=== PATIENT | female | born 1980 | race Caucasian/White ===

== ENCOUNTER 2018-01-08 16:43 | Emergency (ER) | payer MEDICAID, SELFPAY ==
[2018-01-08 16:52] VITALS: BP 129/84; PULSE 92; RESP 20; TEMP 37.1; O2SAT 99; BMI 21.2
--- NOTE | 2018-01-08 17:21 | HMH.EDUTC ---
[facility] [place] Disposition Clinical Impression: Tobacco abuse Bronchitis, acute Qualifiers: Bronchitis organism: unspecified organism Qualified Code(s): J20.9 - Acute bronchitis, unspecified Disposition: Home, Self-Care Condition on Discharge: Good Instructions: DI for Acute Bronchitis, How to Quit Tobacco Products Additional Instructions: * STOP SMOKING!!!! * start antibiotic today. Be sure to complete entire prescription even if feeling better. * Monitor Temp. Follow up if fever develops * humidifier/vaporizer/hot steamy shower * Inhaler every 4-6 hours as needed like we discussed. Should help open airways and improve cough, wheezing, shortness of breath. * COntinue Mucinex during the day for your cough and cough suppressant only at night. Be sure to drink lots of water. Insurance may not cover a prescription of mucinex. Might be cheaper to get 400mg tablets and take 2 tablets morning, midday and evening all with lots of water. * Tessalon Perles will not cause drowsiness but use at bedtime to help stop cough so that you can get some rest * Start steroid today. Helps with inflammation therefore, cough and wheezing. Follow directions on package. Rvwd side effects. Pt reports they have taken them before. Prescriptions: Albuterol Sulfate [Albuterol HFA Inhaler] 1 - 2 puffs IH Q4-6H PRN #1 inh PRN Reason: Shortness Of Breath Or Wheezing Azithromycin [Z-Paulo 250mg Tab] 250 mg PO UD DOSE PK #6 tab Benzonatate [Benzonatate 200mg Cap] 200 mg PO HS PRN #14 cap PRN Reason: Cough predniSONE [Deltasone 10mg tablet] 10 mg PO BID #10 tab Referrals: Peter Magallanes MD [Primary Care Provider] - (Follow up IMMEDIATELY for new or worsening symptoms OR no noticeable improvement over the next 48-72 hours. 911 for difficulty breathing.) Time of Disposition: 17:30 Medical Decision Making - Jean Inquiry Pt receiving controlled substance: No Vital Signs: 01/08/18 16:52 Temperature 98.7 F Temperature Source Oral Pulse Rate [Right Brachial] 92 H Respiratory Rate 20 Blood Pressure [Right Arm] 129/84 Blood Pressure Mean [Right Arm] 99 Blood Pressure Source [Right Arm] Automatic Cuff Blood Pressure Position [Right Arm] Sitting 02 Sat by Pulse Oximetry 99 Oxygen Delivery Method Room Air [facility] [place] HPI - General Stated complaint: Cough, Vomiting Time Seen by Provider: 01/08/18 17:21 Mode of Arrival: Family Vehicle Source of Information: Patient Limitations: No Limitations Description of Symptoms (Recalled from Triage Doc. by RN): C/O COUGH AND VOMITING X 1 1/2 WEEKS HEENT Symptoms (Recalled from RN notes): No Resp Symptoms (Recalled from RN notes): Yes Skin Symptoms (Recalled from RN notes): No MS Symptoms (Recalled from RN notes): No Functional Status (Recalled from RN notes): N/A - History of Present Illness Provider Complaint: c/o I think I have bronchitis . Started with just a head cold 1-1.5 weeks ago and feels like head improved but moved to my chest 3-4 days ago. Keeps getting worse. Nonprod cough so much so that I puke at times , SOA at times and wheezing at night. + tobacco abuse. Denies PMHx of lung disease. Hx of bronchitis. Has an old albuterol inhaler that is nearly empty but seems to help. Worse when hot, talking, laughing. No known sick contacts. Denies fever, aches, chills, weakness. - Related Data Previous Rx's Medication Instructions Recorded Albuterol Sulfate [Albuterol HFA 1 - 2 puffs IH Q4-6H PRN #1 inh 01/08/18 Inhaler] Azithromycin [Z-Paulo 250mg Tab] 250 mg PO UD DOSE PK #6 tab 01/08/18 Benzonatate [Benzonatate 200mg Cap] 200 mg PO HS PRN #14 cap 01/08/18 predniSONE [Deltasone 10mg tablet] 10 mg PO BID #10 tab 01/08/18 Allergies Allergy/AdvReac Type Severity Reaction Status Date / Time hydrocodone [HYDROCODONE] Allergy Unknown Verified 01/08/18 16:55 oxycodone [OXYCODONE] Allergy Unknown Verified 01/08/18 16:55 - Worker's Comp Is this a Worker's Comp case?: No [facility] History I have re
--- NOTE | 2018-01-08 17:27 | ED_ITS ---
[facility] [place] Disposition Clinical Impression: Tobacco abuse Bronchitis, acute Qualifiers: Bronchitis organism: unspecified organism Qualified Code(s): J20.9 - Acute bronchitis, unspecified Disposition: Home, Self-Care Condition on Discharge: Good Instructions: DI for Acute Bronchitis, How to Quit Tobacco Products Additional Instructions: * STOP SMOKING!!!! * start antibiotic today. Be sure to complete entire prescription even if feeling better. * Monitor Temp. Follow up if fever develops * humidifier/vaporizer/hot steamy shower * Inhaler every 4-6 hours as needed like we discussed. Should help open airways and improve cough, wheezing, shortness of breath. * COntinue Mucinex during the day for your cough and cough suppressant only at night. Be sure to drink lots of water. Insurance may not cover a prescription of mucinex. Might be cheaper to get 400mg tablets and take 2 tablets morning, midday and evening all with lots of water. * Tessalon Perles will not cause drowsiness but use at bedtime to help stop cough so that you can get some rest * Start steroid today. Helps with inflammation therefore, cough and wheezing. Follow directions on package. Rvwd side effects. Pt reports they have taken them before. Prescriptions: Albuterol Sulfate [Albuterol HFA Inhaler] 1 - 2 puffs IH Q4-6H PRN #1 inh PRN Reason: Shortness Of Breath Or Wheezing Azithromycin [Z-Paulo 250mg Tab] 250 mg PO UD DOSE PK #6 tab Benzonatate [Benzonatate 200mg Cap] 200 mg PO HS PRN #14 cap PRN Reason: Cough predniSONE [Deltasone 10mg tablet] 10 mg PO BID #10 tab Referrals: Peter Magallanes MD [Primary Care Provider] - (Follow up IMMEDIATELY for new or worsening symptoms OR no noticeable improvement over the next 48-72 hours. 911 for difficulty breathing.) Time of Disposition: 17:30 Medical Decision Making - Jean Inquiry Pt receiving controlled substance: No Vital Signs: 01/08/18 16:52 Temperature 98.7 F Temperature Source Oral Pulse Rate [Right Brachial] 92 H Respiratory Rate 20 Blood Pressure [Right Arm] 129/84 Blood Pressure Mean [Right Arm] 99 Blood Pressure Source [Right Arm] Automatic Cuff Blood Pressure Position [Right Arm] Sitting 02 Sat by Pulse Oximetry 99 Oxygen Delivery Method Room Air [facility] [place] HPI - General Stated complaint: Cough, Vomiting Time Seen by Provider: 01/08/18 17:21 Mode of Arrival: Family Vehicle Source of Information: Patient Limitations: No Limitations Description of Symptoms (Recalled from Triage Doc. by RN): C/O COUGH AND VOMITING X 1 1/2 WEEKS HEENT Symptoms (Recalled from RN notes): No Resp Symptoms (Recalled from RN notes): Yes Skin Symptoms (Recalled from RN notes): No MS Symptoms (Recalled from RN notes): No Functional Status (Recalled from RN notes): N/A - History of Present Illness Provider Complaint: c/o I think I have bronchitis . Started with just a head cold 1-1.5 weeks ago and feels like head improved but moved to my chest 3-4 days ago. Keeps getting worse. Nonprod cough so much so that I puke at times , SOA at times and wheezing at night. + tobacco abuse. Denies PMHx of lung disease. Hx of bronchitis. Has an old albuterol inhaler that is nearly empty but seems to help. Worse when hot, talking, laughing. No known sick contacts. Denies fever, aches, chills, weakness. - Related Data Previous Rx's Medication Instructions Recorded Albuterol Sulfate [Albuterol HFA 1 - 2 puffs IH Q4-6H PRN #1 inh 01/08/18 Inhaler]
[2018-01-08 17:34] VITALS: BP 129/84; PULSE 92; RESP 20; TEMP 37.1; O2SAT 99
== END 2018-01-08 17:35 | disposition home or self-care (01) ==
PROVIDERS: Emergency Provider Nurse Practitioner Family; Family Provider Internal Medicine Adolescent Medicine; PCP Internal Medicine Adolescent Medicine
DX: J20.9 Acute bronchitis, unspecified (principal); F17.210 Nicotine dependence, cigarettes, uncomplicated
CPT/HCPCS: 99201

== ENCOUNTER → 2020-09-08 12:08 | Outpatient (CLI) | payer OTHER, SELFPAY ==
[2020-09-08 13:18] LABS: Chloride 105 mmol/L (98-107); Potassium 4.4 mmoL/L (3.5-5.1); Sodium 139 mmol/L (136-145)
[2020-09-08 13:20] LABS: Blood Urea Nitrogen 3 mg/dl (7-17); Estimated Glomerular Filt Rate 94 ml/min (>60); GFR (African American) 113 ML/MIN (>60)
[2020-09-08 13:21] LABS: Alanine Aminotransferase 14 U/L (12-78); Albumin Level 4.9 g/dl (3.5-5.0); Albumin/Globulin Ratio 1.8 (1.1-1.8); Alkaline Phosphatase 68 U/L (38-126); Anion Gap 10.4 mEq/L (5-15); Aspartate Amino Transferase 25 U/L (14-36); Bilirubin,Total 0.6 mg/dl (0.2-1.3); Calcium 10.4 mg/dl (8.4-10.2); Carbon Dioxide 28 mmol/L (22.0-30.0); Chol/HDL Ratio 2.9 (1-3.5); Cholesterol 232 mg/dl (140-200); Globulin 2.7 g/dL (1.3-3.2); Glucose 99 mg/dl (74-100); HDL Cholesterol 80 mg/dl (40-60); Total Protein,Serum 7.6 g/dl (6.3-8.2); Triglycerides 96 mg/dl (30-150); VLDL Cholesterol 19 mg/dL (0-40)
[2020-09-08 13:32] LABS: Direct LDL Cholesterol 111.98 mg/dL (100-129)
[2020-09-08 14:09] LABS: Vitamin B12 451 pg/mL (239-931)
[2020-09-08 19:39] LABS: Basophils # 0.1 K/mm3 (0-0.2); Basophils % 0.8 % (0.1-2.0); Eosinophils % 0.4 % (0.1-12.0); Hematocrit 48.9 % (37.0-47.0); Hemoglobin 15.5 g/dL (12.2-16.2); Lymphocytes # 1.6 K/mm3 (0.7-4.5); Lymphocytes % 18.1 % (10-50); Mean Corpuscular HGB Conc 31.8 g/dL (31.8-35.4); Mean Corpuscular Hemoglobin 29.8 pg (27.0-31.2); Mean Corpuscular Volume 93.7 fl (81-99); Mean Platelet Volume 9.1 fl (7.4-10.4); Monocytes # 0.4 K/mm3 (0.1-1.0); Monocytes % 4.7 % (1.7-9.3); Neutrophils # 6.8 K/mm3 (1.8-7.8); Platelet Count 305 K/mm3 (142-424); Red Blood Count 5.22 M/mm3 (4.20-5.40); Red Cell Distribution Width 13.1 % (11.5-17.5)
== END ==
PROVIDERS: Visit Provider Internal Medicine Adolescent Medicine
DX: R55 Syncope and collapse (principal); R51.9 Headache, unspecified
CPT/HCPCS: 36415; 80053; 80061; 82607; 84443; 85025

== ENCOUNTER → 2020-09-13 10:12 | Outpatient (CLI) | payer OTHER, SELFPAY ==
--- NOTE | 2020-09-13 10:16 | MR_ITS ---
PROCEDURE: MR HEAD/BRAIN WO CON CLINICAL INDICATION: PRE SYNCOPE, HEADACHE Blurred vision and unable to get words out x1wk. Headache after episode. No prior. COMPARISON: No exams were available for comparison TECHNIQUE: Routine multiplanar multi echo sequences are performed without gadolinium enhancement. FINDINGS: No midline shift, mass effect, intracranial hemorrhage, or hydrocephalus is evident. Abnormal T2 signal is noted in the periventricular white matter in the anterior aspect of the right frontal lobe. This has a somewhat unusual appearance measuring 1.8 cm cephalad caudad and 7 mm transverse. This has a somewhat branching appearance. Other smaller T2 white matter hyperintensities are present in the right frontal lobe, left frontal lobe and both parietal lobes. These are smaller and more subtle in nature. There is no abnormal signal within the corpus callosum, gisella, or temporal lobes. There is minimal periventricular T2 white matter hyperintensity in the right occipital lobe. These areas do not demonstrate restricted diffusion. No mass effect apparent. The pituitary, optic chiasm, corpus callosum, and craniocervical junction have an unremarkable appearance. No mastoid effusion or sinus air-fluid level. IMPRESSION: Abnormal T2 white matter hyperintensity as described above mainly in the right frontal parietal junction but also stay added areas in both parietal lobes and right occipital lobe. These findings are nonspecific and could be seen with multiple sclerosis, skin noah gliotic foci, and atypical sequela from migraine headache. Consider follow-up exam with MS protocol without and with gadolinium enhancement Dictated by: Chavo Coyne MD 09/15/2020 09:43 Chavo Coyne MD in [place] 09/15/2020 09:43
--- NOTE | 2020-09-13 10:48 | CA_ITS ---
APPROVED REPORT Lay Out Machine Operator: Winnie Hannon RVT Laterality: Bilateral Study Quality: Excellent Indications: BLURRED VISION Risk Factors Smoking Doppler Spectral Velocity Analysis ECA (R) 80.50/13.70 cm/s ECA (L) 83.10/11.10 cm/s dICA (R) 84.80/35.10 cm/s dICA (L) 123.40/54.80 cm/s Jorge (R) 84.80/37.70 cm/s Jorge (L) 105.40/52.30 cm/s pICA (R) 72.00/34.30 cm/s pICA (L) 91.70/42.00 cm/s dCCA (R) 80.50/27.40 cm/s dCCA (L) 90.80/30.00 cm/s pCCA (R) 102.70/25.70 cm/s pCCA (L) 113.10/28.30 cm/s Vert (R) 55.70/23.10 cm/s Vert (L) 46.90/16.70 cm/s ICA/CCA 1.05 ICA/CCA 1.36 Findings Study suggests no evidence of stenosis of the bilateral internal cartoid arteries. Antegrade flow seen bilateral vertebral arteries. Conclusion Study suggests no evidence of stenosis of the bilateral internal cartoid arteries. Antegrade flow seen bilateral vertebral arteries. Electronically signed by : Chavo Coyne MD 09/13/2020 16:50:33
== END ==
PROVIDERS: PCP Internal Medicine Adolescent Medicine; Visit Provider Internal Medicine Adolescent Medicine
DX: R51.9 Headache, unspecified (principal); R55 Syncope and collapse
CPT/HCPCS: 70551; 93880

== ENCOUNTER → 2020-10-04 10:02 | Outpatient (CLI) | payer OTHER, SELFPAY ==
[2020-10-04 12:22] LABS: Vitamin B12 470 pg/mL (239-931)
[2020-10-04 12:27] LABS: Folate > 20.00 ng/mL
[2020-10-08 18:26] LABS: Antinuclear Antibodies (ANA) NEGATIVE
== END ==
PROVIDERS: Visit Provider Specialist
DX: R90.89 Other abnormal findings on diagnostic imaging of central nervous system (principal); E78.5 Hyperlipidemia, unspecified; Z86.69 Personal history of other diseases of the nervous system and sense organs; Z72.0 Tobacco use
CPT/HCPCS: 36415; 82607; 82746; 86038

== ENCOUNTER → 2020-10-05 13:30 | Outpatient (CLI) | payer OTHER, SELFPAY ==
--- NOTE | 2020-10-05 13:30 | MR_ITS ---
PROCEDURE: MR HEAD/BRAIN W CON CLINICAL INDICATION: Abnormal findings on MR brain 09-13-20. Headache that causes dizziness and unable to form words. COMPARISON: MR MR HEAD/BRAIN WO CON from 09/13/2020 TECHNIQUE: Routine multiplanar multi echo sequences are performed with gadolinium enhancement. FINDINGS: This exam is compared to the unenhanced exam of 09/13/2020 to further evaluate the white matter changes in the right frontal parietal junction. Axial and coronal images post enhanced shows no evidence of abnormal enhancement. DIR images show hyperintense foci in the right frontal parietal junction corresponding to the abnormalities noted on the recent MRI. At least 1 of these lesions appears to extend tangential to the long axis of the lateral ventricle and may represent a Griffiths finger seen with multiple sclerosis. These areas do not show any abnormal contrast enhancement. IMPRESSION: DIR hyperintensity in the right frontal parietal junction as described. Multiple sclerosis would be a consideration. Gliotic foci from other etiologies is also considered. These areas do not show any contrast enhancement. Dictated by: Chavo Coyne MD 10/07/2020 12:11 Chavo Coyne MD in [place] 10/07/2020 12:11
== END ==
PROVIDERS: PCP Internal Medicine Adolescent Medicine; Visit Provider Specialist
DX: R90.89 Other abnormal findings on diagnostic imaging of central nervous system (principal)
CPT/HCPCS: 70552; A9576

== ENCOUNTER → 2020-10-15 14:03 | Day surgery (SDC) | payer OTHER, SELFPAY ==
[2020-10-15 14:15] VITALS: BP 129/78; PULSE 86; RESP 18; TEMP 36.7; O2SAT 100; BMI 23.3
[2020-10-15 15:29] VITALS: BP 125/75; PULSE 82; RESP 18
--- NOTE | 2020-10-15 15:47 | P.PCN_ITS ---
- Procedure Date: 10/15/20 Time: 15:47 Anesthesiologist:: Koko Moore MD Complications:: None Pre-procedure Diagnosis:: Headaches Post-procedure Diagnosis:: Same Indications for Procedure:: This patient is a pleasant 40-year-old white female who is referred by Dr. Barbosa for lumbar puncture to obtain opening and closing pressures with a work-up for headaches characterized by visual disturbances and possible migrainous in origin. Procedure Details:: Lumbar puncture under fluoroscopy Informed consent was obtained risk and benefits of the procedure were explained to the patient. Patient was taken to the procedure room placed in left lateral decubitus position. She was prepped and draped in sterile fashion. C-arm fluoroscopy was used to view the lumbar spine. The skin and subcutaneous tissues were anesthetized in lidocaine. I placed a 20-gauge spinal needle into the L4-5 interspace. I advanced until clear CSF was obtained. After this opening pressures were taken there were found to be 16 cm of water. We obtain approximately 15 mL of clear CSF placed into a total of 4 tubes. Closing pressures was found to be 11 cm of water. The needle was withdrawn and a Band- Aid was placed. Patient tolerated procedure well with no complications. Plan and Disposition:: We will follow-up with her on a as needed basis. If she has any problems or questions she is to call us back in the pain clinic. We have also given her conservative treatment for post dural puncture headache. If she does get a headache she is to call us back in the pain clinic.
[2020-10-15 16:25] LABS: Glucose,CSF 57 mg/dl (40-70)
[2020-10-15 16:35] LABS: Appearance,CSF Clear (Clear); Red Blood Cell,CSF 0 cells/uL (0); Volume,CSF 9.5 mL; White Blood Cell,CSF 1 cells/uL (0-5)
[2020-10-15 16:47] LABS: Mononuclear WBCs,CSF 1 %; Polynuclear WBCs,CSF 0 %
[2020-10-21 09:16] LABS: Lyme B. burgdorferi PCR Blood Negative (Negative)
[2020-11-01 08:20] LABS: VDRL, Cerebrospinal Fluid NON REACTIVE
[2020-11-01 08:26] LABS: Oligoclonal Banding 0
[2020-11-01 08:31] LABS: Albumin, CSF 20; IgG, Quant, CSF 1.5
[2020-11-01 08:33] LABS: Immunoglobulin G, Qn, Serum 758
[2020-11-01 08:34] LABS: Albumin 4.7
[2020-11-01 08:35] LABS: IgG/Albumin Ratio, CSF 0.08
[2020-11-01 08:36] LABS: CSF IgG Index 0.5
[2020-11-01 08:37] LABS: IgG, Syn Rate, CSF -2.6
[2020-11-01 08:38] LABS: CSF/Serum Alb. Index 4
== END ==
PROVIDERS: Specialist; PCP Internal Medicine Adolescent Medicine; Visit Provider Anesthesiology
DX: R51.9 Headache, unspecified (principal); J45.909 Unspecified asthma, uncomplicated; F41.9 Anxiety disorder, unspecified; F32.9 Major depressive disorder, single episode, unspecified; Z72.0 Tobacco use; Z88.6 Allergy status to analgesic agent
CPT/HCPCS: 36415; 62329; 82040; 82042; 82784; 82945; 83916; 84155; 86592; 87070; 87102; 87116; 87186; 87205; 87206; 87476; 87899; 89051

== ENCOUNTER 2021-01-31 10:22 | Emergency (ER) | payer OTHER, SELFPAY ==
[2021-01-31 10:45] VITALS: BP 140/80; PULSE 76; RESP 19; TEMP 36.9; O2SAT 98; BMI 21.9
[2021-01-31 11:04] LABS: Apearance,Urine Clear (Clear); Bilirubin,Urine Negative (Negative); Blood, Urine Negative (Negative); Color,Urine Yellow (Yellow); Glucose,Urine (UA) Negative (Negative); Ketones,Urine Negative (Negative); PH,Urine 5.5 (5.0-8.5); Protein,Urine Negative (Negative); Specific Gravity, Urine 1.005 (1.005-1.030); UTC Leukocyte Esterase,Urine Negative (Negative); UTC Nitrate,Urine Negative (Negative); Urobilinogen,Urine 0.2 EU/dl (0.2)
[2021-01-31 11:50] VITALS: BP 140/80; PULSE 76; RESP 19; TEMP 36.9; O2SAT 98
== END 2021-01-31 11:51 | disposition left against medical advice (07) ==
LOC: UTC 10:24
PROVIDERS: Emergency Provider Nurse Practitioner; PCP Internal Medicine Adolescent Medicine
DX: Z53.21 Procedure and treatment not carried out due to patient leaving prior to being seen by health care provider (principal); M54.5 Low back pain
CPT/HCPCS: 81003

== ENCOUNTER 2021-02-12 10:05 | Emergency (ER) | payer OTHER, SELFPAY ==
[2021-02-12 10:08] VITALS: BP 144/78; PULSE 80; RESP 12; TEMP 36.7; O2SAT 98; BMI 23.0
--- NOTE | 2021-02-12 10:52 | HMH.EDUTC ---
[facility] [place] Clinical Impression: Hordeolum externum left lower eyelid Disposition: Home, Self-Care Condition on Discharge: Good Instructions: HUGO Butler for Hordeolum Additional Instructions: Keep doing the warm wet compresses to the stye area. Use the eye drops as directed. Strict hand washing in the house hold. Follow up with your regular doctor. GO TO THE ER FOR ANY WORSENING SYMPTOMS OR CONCERNS Prescriptions: Sulfacetamide Sodium [Bleph-10] 1 drp EAR-LEFT Q3H 7 Days #1 bottle Transmission Status: Received by [facility] [employer] Referrals: Peter Magallanes MD [Primary Care Provider] - Time of Disposition: 11:02 Medical Decision Making - Medical Records Medical records reviewed: No: I reviewed the patient's medical records. - Jean Inquiry Pt receiving controlled substance: No Vital Signs: 02/12/21 10:08 02/12/21 11:06 Temperature 98.1 F 98.1 F Temperature Source Oral Pulse Rate 78 Pulse Rate [Left] 80 Respiratory Rate 12 12 Blood Pressure 140/77 Blood Pressure [Right Arm] 144/78 H Blood Pressure Mean [Right Arm] 100 02 Sat by Pulse Oximetry 98 [facility] [place]PI - General Stated complaint: swollen lt eye Time Seen by Provider: 02/12/21 10:52 Mode of Arrival: Ambulatory Source of Information: Patient Limitations: No Limitations Description of Symptoms (Recalled from Triage Doc. by RN): pt c/o of a stye in her left eye. her lower L eyelid is swollen down to her cheek bone. HEENT Symptoms (Recalled from RN notes): Yes (L eye swelling and pain) Resp Symptoms (Recalled from RN notes): No Skin Symptoms (Recalled from RN notes): No MS Symptoms (Recalled from RN notes): No Functional Status (Recalled from RN notes): na - History of Present Illness Provider Complaint: She c/o left eye irritation for the past couple of days. She denies any injury. She denies any decreased visual acuity. She states that she first noticed a stye on her left lower eye lid 4 days ago. She has been putting warm wet compresses on it. She states that she has had these before and they got better like that, but this one has not got better. Now her left lower eye lid is getting puffy and she his having excessive watering of the eye. She denies any foreign body in her eye. - Related Data Home Medications Medication Instructions Recorded Confirmed aspirin 81 mg tablet,delayed 81 mg PO DAILY 09/30/20 01/31/21 release Previous Rx's Medication Instructions Recorded propranolol 20 mg tablet 20 mg PO QHS #30 tab 12/30/20 ubrogepant 100 mg tablet 100 mg PO ONCE PRN #10 tab 12/30/20 Sulfacetamide Sodium [Bleph-10] 1 drp EAR-LEFT Q3H 7 Days #1 bottle 02/12/21 Allergies Allergy/AdvReac Type Severity Reaction Status Date / Time hydrocodone [HYDROCODONE] Allergy Unknown Verified 02/12/21 10:15 oxycodone [OXYCODONE] Allergy Unknown Verified 02/12/21 10:15 - Worker's Comp Is this a Worker's Comp case?: No [facility] History - Hepatitis A Screen Drug use history?: No High risk sexual behaviors?: No History of sexually transmitted infection?: No Currently employed?: No Childcare worker?: No Do you have indoor plumbing?: Yes Do you have electricity?: Yes Attestation statement:: This patient has been screened for Hepatitis A risk factors. I have reviewed the patient's past medical history: Yes Medical History: Reports:: Anxiety, Asthma, Depression, Migraine Denies:: Cancer, Chronic Obstructive Pulmonary Disease (COPD), Diabetes Mellitus Type 1, Diabetes Mellitus Type 2, Hypertension, MRSA, Seizures Other Medical History: Denies: Blood Transfusion Reaction Laterality Cases: Right: Carpal Tunnel Release Other Surgeries: Yes: Cholecystectomy, Tubal Ligation, Other Amputation: No Fractures: No - Social History Smoking Status: Current every day smoker Tobacco Type: cigarettes # Packs/Day (cigarettes): 1 Alcohol Intake: never Alcohol Intake Frequency:: other Substance Use Type: denies u
[2021-02-12 11:06] VITALS: BP 140/77; PULSE 78; RESP 12; TEMP 36.7
== END 2021-02-12 11:09 | disposition home or self-care (01) ==
PROVIDERS: Emergency Provider Nurse Practitioner Family; PCP Internal Medicine Adolescent Medicine
DX: F41.8 Other specified anxiety disorders; J45.909 Unspecified asthma, uncomplicated; G43.709 Chronic migraine without aura, not intractable, without status migrainosus; F17.210 Nicotine dependence, cigarettes, uncomplicated
CPT/HCPCS: 99202; G0463

== ENCOUNTER → 2021-03-31 08:43 | Outpatient (CLI) | payer OTHER, SELFPAY ==
[2021-03-31 09:10] LABS: Basophils # 0.1 K/mm3 (0-0.2); Eosinophils # 0.1 K/mm3 (0.0-0.4); Eosinophils % 0.9 % (0.1-12.0); Hematocrit 49.1 % (37.0-47.0); Hemoglobin 16.3 g/dL (12.2-16.2); Lymphocytes # 1.6 K/mm3 (0.7-4.5); Lymphocytes % 21.3 % (10-50); Mean Corpuscular HGB Conc 33.2 g/dL (31.8-35.4); Mean Corpuscular Hemoglobin 31.5 pg (27.0-31.2); Mean Platelet Volume 7.6 fl (7.4-10.4); Monocytes # 0.4 K/mm3 (0.1-1.0); Monocytes % 5.8 % (1.7-9.3); Neutrophils # 5.3 K/mm3 (1.8-7.8); Neutrophils % 70.9 % (37.0-80.0); Platelet Count 289 K/mm3 (142-424); Red Blood Count 5.18 M/mm3 (4.20-5.40); Red Cell Distribution Width 12.5 % (11.5-17.5); White Blood Count 7.4 K/mm3 (4.8-10.8)
[2021-03-31 09:46] LABS: Chloride 105 mmol/L (98-107); Potassium 4.5 mmoL/L (3.5-5.1); Sodium 139 mmol/L (136-145)
[2021-03-31 09:48] LABS: Blood Urea Nitrogen 6 mg/dl (7-17)
[2021-03-31 09:49] LABS: Alanine Aminotransferase 16 U/L (12-78); Albumin Level 4.3 g/dl (3.5-5.0); Albumin/Globulin Ratio 1.7 (1.1-1.8); Alkaline Phosphatase 60 U/L (38-126); Anion Gap 14.5 mEq/L (5-15); Aspartate Amino Transferase 25 U/L (14-36); Bilirubin,Total 0.8 mg/dl (0.2-1.3); Calcium 9.5 mg/dl (8.4-10.2); Carbon Dioxide 24 mmol/L (22.0-30.0); Estimated Glomerular Filt Rate 94 ml/min (>60); GFR (African American) 113 ML/MIN (>60); Globulin 2.6 g/dL (1.3-3.2); Glucose 87 mg/dl (74-100); Total Protein,Serum 6.9 g/dl (6.3-8.2)
[2021-03-31 10:18] LABS: Thyroid Stimulating Hormone 1.12 uIU/mL (0.465-4.68)
[2021-03-31 11:42] LABS: Vitamin B12 441 pg/mL (239-931)
[2021-03-31 14:38] LABS: Folate > 20.00 ng/mL
[2021-04-06 22:55] LABS: 1,25 Dihydroxy Vitamin D 46 pg/mL (.); 1,25-Dihydroxy, Vitamin D-2 <10 pg/mL (.); 1,25-Dihydroxy, Vitamin D-3 46 pg/mL (.)
== END ==
PROVIDERS: Visit Provider Nurse Practitioner Family
DX: G43.009 Migraine without aura, not intractable, without status migrainosus (principal); R53.83 Other fatigue
CPT/HCPCS: 36415; 80053; 82607; 82652; 82746; 84443; 85025

== ENCOUNTER → 2021-04-08 12:55 | Outpatient (CLI) | payer OTHER, SELFPAY | PROVIDERS: PCP Internal Medicine Adolescent Medicine; Visit Provider Nurse Practitioner Family | DX: G47.9 Sleep disorder, unspecified (principal); G47.8 Other sleep disorders; G43.009 Migraine without aura, not intractable, without status migrainosus; G47.00 Insomnia, unspecified; R06.83 Snoring; R53.83 Other fatigue | CPT/HCPCS: 95806 ==

== ENCOUNTER 2021-04-28 07:53 | Emergency (ER) | payer OTHER, SELFPAY ==
--- NOTE | 2021-04-28 07:45 | ECG_ITS ---
APPROVED REPORT Exam: Resting ECG HR:75 bpm ECG Measurements Heart Rate 75 AXES PA 114 P 48 QRSd 76 QRS 61 QT 368 T 42 QTc 410 Conclusion Normal sinus rhythm Low voltage QRS Borderline ECG Electronically signed by : Peter Magallanes MD 04/30/2021 09:00:47
[2021-04-28 07:55] VITALS: BMI 23.0
--- NOTE | 2021-04-28 07:57 | XR_ITS ---
PROCEDURE: XR CHEST 2V CLINICAL HISTORY: chest pain COMPARISON: No exams were available for comparison FINDINGS: The cardiomediastinal silhouette and pulmonary vascularity are within normal limits. The lungs are clear without infiltrates, suspicious nodules, or pleural effusions. No acute bony abnormalities. Bilateral breast implants noted. IMPRESSION: No acute findings. Dictated by: Chavo Coyne MD 04/28/2021 08:35 Chavo Coyne MD in [place] 04/28/2021 08:35
[2021-04-28 07:59] VITALS: BP 117/85; PULSE 79; RESP 16; TEMP 36.5; O2SAT 99; BMI 23.0
[2021-04-28 08:06] LABS: Basophils # 0.1 K/mm3 (0-0.2); Basophils % 1.3 % (0.1-2.0); Eosinophils # 0.1 K/mm3 (0.0-0.4); Hematocrit 49.1 % (37.0-47.0); Hemoglobin 16.2 g/dL (12.2-16.2); Lymphocytes # 1.5 K/mm3 (0.7-4.5); Lymphocytes % 22.3 % (10-50); Mean Corpuscular HGB Conc 32.9 g/dL (31.8-35.4); Monocytes # 0.5 K/mm3 (0.1-1.0); Monocytes % 6.5 % (1.7-9.3); Neutrophils # 4.8 K/mm3 (1.8-7.8); Platelet Count 298 K/mm3 (142-424); Red Blood Count 5.22 M/mm3 (4.20-5.40); Red Cell Distribution Width 12.8 % (11.5-17.5); White Blood Count 6.9 K/mm3 (4.8-10.8)
[2021-04-28 08:09] LABS: Chloride 107 mmol/L (98-107); Potassium 4.1 mmoL/L (3.5-5.1); Sodium 139 mmol/L (136-145)
[2021-04-28 08:12] LABS: Anion Gap 10.1 mEq/L (5-15); Blood Urea Nitrogen 4 mg/dl (7-17); Carbon Dioxide 26 mmol/L (22.0-30.0); Creatinine Clearance Estimated 118 mL/min (50-200); Estimated Glomerular Filt Rate 112 ml/min (>60); GFR (African American) 135 ML/MIN (>60)
[2021-04-28 08:13] LABS: Calcium 9.7 mg/dl (8.4-10.2); Glucose 53 mg/dl (74-100)
[2021-04-28 08:26] LABS: Troponin I < 0.01 ng/ml (0.00-0.034)
--- NOTE | 2021-04-28 08:53 | HMH.EDGENADL ---
ED Disposition Clinical Impression: Chest pain Qualifiers: Chest pain type: unspecified Qualified Code(s): R07.9 - Chest pain, unspecified Disposition: Home, Self-Care Condition on Discharge: Good Instructions: DI for Chest Pain Additional Instructions: Additional instructions for CHEST PAIN: See your physician as soon as possible for further evaluation. Return immediately if worsening chest pain, vomiting, shortness of breath, fever, coughing of blood. Referrals: Jose F Alejandro MD [Primary Care Provider] - - Critical Care Critical Care Time: No Attestation: On 04/28/21, the high probability of a clinically significant, sudden or life threatening deterioration of the following system(s) required my full and direct attention, intervention and personal management. The time I documented below is in addition to time spent performing reported procedures but includes the following listed in this critical care notation. Medical Decision Making - Jean Inquiry Pt receiving controlled substance: No Vital Signs: 04/28/21 07:59 Temperature 97.7 F Temperature Source Oral Pulse Rate [Left Radial] 79 Respiratory Rate 16 Blood Pressure [Right Arm] 117/85 Blood Pressure Mean [Right Arm] 95 Blood Pressure Source [Right Arm] Automatic Cuff Blood Pressure Position [Right Arm] Sitting 02 Sat by Pulse Oximetry 99 Oxygen Delivery Method Room Air - Lab Data Lab Results 04/28/21 07:56: WBC 6.9, RBC 5.22, Hgb 16.2, Hct 49.1 H, MCV 94.0, MCH 31.0, MCHC 32.9, RDW 12.8, Plt Count 298, MPV 8.0, Neut % (Auto) 69.0, Lymph % (Auto) 22.3, [place] % (Auto) 6.5, Eos % (Auto) 1.0, Baso % (Auto) 1.3, Neut # (Auto) 4.8, Lymph # (Auto) 1.5, [place] # (Auto) 0.5, Eos # (Auto) 0.1, Baso # (Auto) 0.1 04/28/21 07:56: Sodium 139, Potassium 4.1, Chloride 107, Carbon Dioxide 26, Anion Gap 10.1, BUN 4 L, Creatinine 0.60, Estimated Creat Clear 118, Estimated GFR 112, Est GFR ( Amer) 135, Glucose 53 L, Calcium 9.7, Troponin I < 0.01 04/28/21 10:37: Troponin I < 0.01 Result diagrams: 04/28/21 07:56 04/28/21 07:56 Orders (Tests/Meds): ED MEDICATIONS Discontinued Medications Generic Name Dose Route Start Last Admin Trade Name Tyler PRN Reason Stop Dose Admin Aspirin 243 mg 04/28/21 07:56 04/28/21 08:00 Aspirin 81mg Chewable Tablet PO 04/28/21 07:57 243 mg ONCE ONE Administration ORDERS Category Date Time Status Troponin I Q3H Lab 04/28/21 14:00 Ordered - Radiology Data #1 Image(s): Chest Image Reviewed: Yes I have reviewed radiologist's interpretation PROCEDURE: XR CHEST 2V CLINICAL HISTORY: chest pain COMPARISON: No exams were available for comparison FINDINGS: The cardiomediastinal silhouette and pulmonary vascularity are within normal limits. The lungs are clear without infiltrates, suspicious nodules, or pleural effusions. No acute bony abnormalities. Bilateral breast implants noted. IMPRESSION: No acute findings. Dictated by: Chavo Coyne MD 04/28/2021 08:35 Chavo Coyne MD in [place] 04/28/2021 08:35 - ECG Data Tracing #1 EKG interpreted by Dominic Longo MD: Rhythm: sinus Rate: 75 Kimmell: normal Ectopy: none Conduction: normal ST Segment Changes: none T Wave Changes: none Q Waves: none No evidence of acute ischemia or injury Baseline wander present, but I consider the EKG adequate for accurate interpretation. - Reevaluation(s) Time: 11:35 Reevaluation #1: Patient says she feels fine, no chest discomfort. She is anxious to leave and would like to be discharged as soon as possible. Second troponin is negative. She will be discharged for outpatient follow-up. - HAZEL Score for Non-Stemi Age of Patient: 30-39 years old Heart Rate: 70-89 bpm Systolic Blood Pressure: 100-119 mmHg Serum Creatinine: 0.40-0.79 mg/dl CHF Killip Class: I-No CHF Other Risk Factors: None Non-Stemi Risk Score: 64 Medical Decision Narrative: Heart Pathway Score is:
[2021-04-28 09:00] VITALS: BP 104/74; PULSE 80; RESP 18; O2SAT 97
[2021-04-28 11:14] LABS: Troponin I < 0.01 ng/ml (0.00-0.034)
[2021-04-28 12:15] VITALS: BP 98/73; PULSE 81; RESP 18; TEMP 36.9; O2SAT 96
== END 2021-04-28 12:18 | disposition home or self-care (01) ==
PROVIDERS: Emergency Medicine; Emergency Provider Emergency Medicine; PCP Internal Medicine Adolescent Medicine
DX: R07.9 Chest pain, unspecified (principal); R42 Dizziness and giddiness; G43.709 Chronic migraine without aura, not intractable, without status migrainosus; F41.8 Other specified anxiety disorders; F17.210 Nicotine dependence, cigarettes, uncomplicated
CPT/HCPCS: 71046; 80048; 84484; 85025; 93005; 99283

== ENCOUNTER → 2021-05-11 07:51 | Outpatient (CLI) | payer OTHER, SELFPAY | PROVIDERS: PCP Internal Medicine Adolescent Medicine; Visit Provider Specialist | DX: G47.30 Sleep apnea, unspecified (principal); R51.9 Headache, unspecified | CPT/HCPCS: 94762 ==

== ENCOUNTER → 2021-11-17 07:08 | Outpatient (CLI) | payer OTHER, SELFPAY ==
--- NOTE | 2021-11-17 07:21 | XR_ITS ---
FINAL REPORT CLINICAL HISTORY: c/o right sided neck pain FINDINGS: CERVICAL SPINE WITH FLEXION AND EXTENSION Seven views were obtained. There is no acute fracture. There is no malalignment. There is straightening of the normal cervical curvature which could be due to positioning or muscle spasm. There is no abnormal movement with flexion and extension. There is mild degenerative change with small osteophytes. There is no soft tissue abnormality. IMPRESSION: Mild degenerative change. Reviewed, Interpreted and Dictated by Yasmany Dumont III, MD Transcribed by Catracho Sanders Authenticated by Yasmany Dumont III, MD on 11/17/2021 09:04:33 AM [facility]
--- NOTE | 2021-11-17 07:36 | MR_ITS ---
FINAL REPORT CLINICAL HISTORY: neck pain, brisk reflexes. NECK PAIN WORSE ON RT.RT ARM PAIN, NUMBNESS AND TINGLING XYRS. NO RECENT INJURY OR TRAUMA. MIGRAINE HEADACHE. FINDINGS: Multiplanar MR imaging of the cervical spine was performed without contrast. On the sagittal T2-weighted images, disc degeneration is seen at multiple levels. There is no evidence of fracture. The vertebral alignment is normal. The cervical spinal cord has an unremarkable appearance without evidence of mass, edema or syrinx. No significant canal stenosis is identified. The cervicomedullary junction is normal. C2-3: There is no significant canal stenosis or neural foraminal narrowing. C3-4: An annular bulge is present. There is no significant canal stenosis or neural foraminal narrowing. C4-5: An annular bulge and uncovertebral osteophytes are present. There is mild right neural foraminal narrowing. C5-6: An annular bulges uncovertebral osteophytes are present. There is moderate right and mild left neural foraminal narrowing. C6-7: An annular bulge is present. There is no significant canal stenosis or neural foraminal narrowing. C7-T1: There is no significant canal stenosis or neural foraminal narrowing. IMPRESSION: Multilevel degenerative disc disease and spondylosis. Reviewed, Interpreted and Dictated by Yasmany Dumont III, MD Transcribed by Gillian Hubbard Authenticated by Yasmany Dumont III, MD on 11/17/2021 09:29:39 AM [facility]
[2021-11-17 09:26] LABS: Vitamin B12 350 pg/mL (239-931)
== END ==
PROVIDERS: PCP Internal Medicine Adolescent Medicine; Visit Provider Nurse Practitioner Family
DX: G43.109 Migraine with aura, not intractable, without status migrainosus (principal); G44.209 Tension-type headache, unspecified, not intractable; G44.86 Cervicogenic headache; M54.2 Cervicalgia; R29.2 Abnormal reflex
CPT/HCPCS: 36415; 72052; 72141; 76376; 82607

== ENCOUNTER 2021-12-01 09:01 | Emergency (ER) | payer OTHER, SELFPAY ==
[2021-12-01 09:22] VITALS: BP 118/77; PULSE 68; RESP 19; TEMP 36.8; O2SAT 95; BMI 21.9
--- NOTE | 2021-12-01 09:41 | HMH.EDUTC ---
[facility] Disposition Clinical Impression: Bronchitis, acute Qualifiers: Bronchitis organism: unspecified organism Qualified Code(s): J20.9 - Acute bronchitis, unspecified Sinusitis Qualifiers: Sinusitis location: unspecified location Chronicity: unspecified Qualified Code(s): J32.9 - Chronic sinusitis, unspecified Disposition: Home, Self-Care Condition on Discharge: Good Instructions: Sinusitis, DI for Sinusitis Additional Instructions: ? Start antibiotic today. Be sure to complete entire prescription even if feeling better ? Monitor temp. Tylenol every 4 hours as needed and / or ibuprofen every 6 hours as needed ( As long as your primary care physician has told you that it ok to take both. For fever/aches/pains ER if no less than 101 despite Tylenol or Motrin ? Humidifier/vaporizer or hot steamy shower *Tessalon Perles will not cause drowsiness but use at bedtime to help stop cough so that you may get some rest. *Start steroid today. Helps with inflammation therefore, cough and wheezing. Follow directions on the package. Reviewed side effects. Patient reports taking them before. Follow up IMMEDIATELY for new or worsening of symptoms OR no noticeable improvement over the next 48-72 hours. 911 immediately for any life threatening symptoms such as chest pain or difficulty breathing Prescriptions: Benzonatate [Benzonatate 100mg cap] 100 mg PO Q8HP PRN #15 cap PRN Reason: Cough Transmission Status: Pending to [facility] Amoxicillin/Potassium Clav [Amox-Clav 875-125 mg Tablet] 1 tab PO BID #14 tab Transmission Status: Pending to [facility] methylPREDNISolone [Medrol 4mg tab] 4 mg PO DIRECTED #21 tab Transmission Status: Pending to [facility] Referrals: Jose F Alejandro MD [Primary Care Provider] - As needed Time of Disposition: 09:46 Medical Decision Making - Jean Inquiry Pt receiving controlled substance: No Jean was queried for this patient: No Vital Signs: 12/01/21 09:22 Temperature 98.3 F Temperature Source Oral Pulse Rate [Left] 68 Respiratory Rate 19 Blood Pressure [Right Arm] 118/77 Blood Pressure Mean [Right Arm] 90 02 Sat by Pulse Oximetry 95 [facility] HPI - General Stated complaint: chest congestion, cough Time Seen by Provider: 12/01/21 09:41 Mode of Arrival: Ambulatory Source of Information: Patient Limitations: No Limitations Description of Symptoms (Recalled from Triage Doc. by RN): pt c/o allergies, cough and congestion x1 wk. HEENT Symptoms (Recalled from RN notes): Yes Resp Symptoms (Recalled from RN notes): Yes Skin Symptoms (Recalled from RN notes): No MS Symptoms (Recalled from RN notes): No Functional Status (Recalled from RN notes): na - History of Present Illness Provider Complaint: Patient state that she started with allergies about a week ago but now it has changed States that she is having sinus pressure, drainage in the back of her throat and cough State that feels like she is getting bronchitis again - Related Data Home Medications Medication Instructions Recorded Confirmed aspirin 81 mg tablet,delayed 81 mg PO DAILY 09/30/20 12/01/21 release Previous Rx's Medication Instructions Recorded ubrogepant 100 mg tablet 100 mg PO ONCE PRN #10 tab 05/05/21 Amoxicillin/Potassium Clav 1 tab PO BID #14 tab 12/01/21 [Amox-Clav 875-125 mg Tablet] Benzonatate [Benzonatate 100mg 100 mg PO Q8HP PRN #15 cap 12/01/21 cap] methylPREDNISolone [Medrol 4mg 4 mg PO DIRECTED #21 tab 12/01/21 tab] tizanidine 4 mg tablet 4 mg PO HS PRN #90 tab 12/01/21 Allergies Allergy/AdvReac Type Severity Reaction Status Date / Time hydrocodone [HYDROCODONE] Allergy Unknown Verified 12/01/21 09:27 oxycodone [OXYCODONE] Allergy Unknown Verified 12/01/21 09:27 - Worker's Comp Is this a Worker's Comp case?: No [facility] History - Hepatitis A Screen Attestation statement:: This patient has been screened for Hepatitis A risk factors.
[2021-12-01 09:46] VITALS: BP 118/77; PULSE 68; RESP 19; TEMP 36.8
== END 2021-12-01 09:51 | disposition home or self-care (01) ==
PROVIDERS: Emergency Provider Nurse Practitioner; PCP Internal Medicine Adolescent Medicine
DX: J20.9 Acute bronchitis, unspecified (principal); J32.9 Chronic sinusitis, unspecified; Z88.6 Allergy status to analgesic agent
CPT/HCPCS: 99212; G0463

== ENCOUNTER 2021-12-06 08:00 | Outpatient (RCR) | payer OTHER, SELFPAY ==
--- NOTE | 2021-11-17 09:39 | HMH.PTOPEV ---
PT Outpatient Evaluation Rehab PT Outpatient Evaluation Start: 11/17/21 08:47 Freq: Status: Active Protocol: Document 11/17/21 09:23 CHARANJITEARNEST (Rec: 11/17/21 09:39 PHORNE [id number]) Electronically Signed By Ernesto Garcia, PT 11/17/21 09:23 Outpatient Therapy Subjective History Subjective History Pt is 41 yowf who presents with c/o long hx of migraine headaches for many years. More recently her R neck and head became more painful with activity, but none specific. 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 She reports prior pain/numbness in her R hand and had CTR performed, but this did not completely relieve her symptoms. She reports no significant PMH. This date she presents with increased tenderness to palpation in the R lev scap, irritation with P /A glides at C5-6, referred pain into R mastoid process area, and R Median nerve tension. Chief Complaint Pain Symptom Type Ache,Sharp,Burning,Numbness Symptoms Relieved By Nothing Symptoms Aggravated By Physical Activity,Lifting Prior Functional Limitations None Current Functional Limitations Lifting,Recreation Activity Symptom Description Constant but Variable Level of pain today (0-10) 3 Pain scale - at its worst (0-10) 7 Cervical Eval Palpation Cervical Muscles R Cervical Paraspinal Cervical/Thoracic Palpation Findings Tenderness Flexibility Deficits Levaetor Scapulae Muscle Length (R) Mild Tightness Pectoralis Major Muscle Length (R) Mild Tightness Pectoralis Minor Muscle Length (R) Mild Tightness Passive Joint Mobility Cervical PIVM Dec: R C5/6 L C5/6 WNL: R OA L OA R AA L AA R C2/3 L C2/3 R C3/4 L C3/4 R C4/5 L C4/5 R C6/7
== END 2021-12-06 08:05 | disposition home or self-care (01) ==
LOC: PT 08:00
PROVIDERS: PCP Internal Medicine Adolescent Medicine; Visit Provider Nurse Practitioner Family
DX: M54.2 Cervicalgia (principal); G43.109 Migraine with aura, not intractable, without status migrainosus; G44.86 Cervicogenic headache; R29.2 Abnormal reflex; G44.209 Tension-type headache, unspecified, not intractable
CPT/HCPCS: 97010; 97012; 97014; 97110; 97140; 97163; G0283

== ENCOUNTER 2022-06-13 08:01 | Emergency (ER) | payer OTHER, SELFPAY ==
--- NOTE | 2022-06-13 08:18 | EXP.UTC ---
Discharge Plan Disposition Patient Disposition: Home, Self-Care Condition: Good Prescriptions Prescriptions: New azithromycin [Zithromax] 250 mg tablet 250 mg PO UD DOSE PK Qty: 6 0RF Rx Instructions: Take two (2) tablets today, then one (1) tablet days #2 thru #5 benzonatate [benzonatate] 100 mg capsule 100 mg PO TIDP PRN (Reason: Cough) Qty: 30 0RF methylprednisolone 4 mg Tablets,Dose Pack 4 mg PO DIRECTED Qty: 21 0RF No Action aspirin [Adult Aspirin Regimen] 81 mg tablet,delayed release (DR/EC) 81 mg PO DAILY tizanidine 4 mg tablet See Rx Instructions PO HS PRN (Reason: cervicogenic headaches) 90 Days Qty: 180 1RF Rx Instructions: 4-8mg (1-2 tablets) orally at bedtime nightly PRN; Ubrelvy 100 mg tablet 100 mg PO ONCE PRN (Reason: migraine headache) Qty: 16 5RF Rx Instructions: take 100mg at onset of headache, may repeat 100mg after 2 hours if symptoms persist. Max dose 200mg in 24 hours or 10 tab per month benzonatate 100 MG capsule 100 mg PO Q8HP PRN (Reason: Cough) Qty: 15 0RF Referrals Follow up/Referrals: Peter Magallanes MD [Primary Care Provider] - See instructions Activity Restrictions/Add. Instructions Additional Instructions/Restrictions: Drink plenty of fluids. Take tylenol or ibuprofen for pain or fever. Take the medications as directed. Follow up with your regular doctor. GO TO THE ER FOR ANY WORSENING SYMPTOMS Clinical Impressions Clinical Impression: Bronchitis Instructions Patient Instructions: DI for Acute Bronchitis Discharge ED Provider: Jose F Montoya [facility] General Stated complaint: Cough, Congestion Time Seen by Provider: 06/13/22 08:17 History of Present Illness Provider Complaint: She states that for the past 1 week she has had a productive cough with greenish sputum Related Data Home Medications Medication Instructions Recorded Confirmed aspirin 81 mg tablet,delayed 81 mg PO DAILY MIGRAINE 09/30/20 06/01/22 release (Adult Aspirin Regimen) Previous Rx's Medication Instructions Recorded benzonatate 100 mg capsule 100 mg PO Q8HP PRN Cough #15 caps 12/01/21 tizanidine 4 mg tablet See Rx Instructions PO HS PRN 06/01/22 cervicogenic headaches 90 days #180 tabs ubrogepant 100 mg tablet (Ubrelvy) 100 mg PO ONCE PRN migraine 06/01/22 headache #16 tabs azithromycin 250 mg tablet 250 mg PO UD DOSE PK #6 tabs 06/13/22 (Zithromax) benzonatate 100 mg capsule 100 mg PO TIDP PRN Cough #30 caps 06/13/22 methylprednisolone 4 mg tablets in 4 mg PO DIRECTED #21 tabs 06/13/22 a dose pack Allergies Allergy/AdvReac Type Severity Reaction Status Date / Time hydrocodone [HYDROCODONE] Allergy Unknown Verified 06/13/22 08:31 oxycodone [OXYCODONE] Allergy Unknown Verified 06/13/22 08:31 PFSH PFSH Social History Smoking Status: Current every day smoker tobacco type: cigarettes packs per day: 1 alcohol intake: never substance use type: denies use current occupational status: employed Travel in the last 8 weeks: None household members: spouse and children housing: house 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 current occupational exposures/hazards: No caffeine: Yes ROS Obtained: Yes All systems reviewed & no additional complaints except as documented Constitutional Constitutional: Denies chills and Denies fever(s) Eyes Eyes: Denies eye discharge ENT Ears, Nose, Mouth, and Throat: Denies dizziness, Denies otalgia and Denies sore throat Cardiovascular Cardiovascular: Denies chest pain Respiratory Respiratory: Denies shortness of breath, Reports chest congestion, Reports cough, Denies stridor and Denies wheezing Gastrointestinal Gastrointestingal: Denies nausea or vomiting Musculoskeletal Musculoskeletal: Reports system reviewed and no additional complaints, except as documented and Denies arthralgias Integumentary/Breasts Skin
[2022-06-13 08:28] VITALS: BP 125/90; PULSE 105; RESP 18; TEMP 37.1; O2SAT 99; BMI 23.6
[2022-06-13 09:15] VITALS: BP 125/90; PULSE 105; RESP 18; TEMP 37.1
== END 2022-06-13 09:16 | disposition home or self-care (01) ==
PROVIDERS: Emergency Provider Nurse Practitioner Family; PCP Internal Medicine Adolescent Medicine
DX: R05.9 Cough, unspecified (principal); R09.81 Nasal congestion; G43.909 Migraine, unspecified, not intractable, without status migrainosus; F17.210 Nicotine dependence, cigarettes, uncomplicated; Z79.51 Long term (current) use of inhaled steroids; Z79.899 Other long term (current) drug therapy; Z79.82 Long term (current) use of aspirin; Z88.5 Allergy status to narcotic agent; Z88.6 Allergy status to analgesic agent
CPT/HCPCS: 99213; G0463

== ENCOUNTER → 2023-01-04 09:43 | Outpatient (POV) | payer OTHER, SELFPAY ==
--- NOTE | 2023-01-04 09:47 | EXP.PAIN.OV ---
HPI Data of Consult Patient: new to practice Consult date: 01/04/23 Requesting Physician: Silvana Hernadez APRN Primary Care Provider: Peter Magallanes MD Consult Narrative Reason for consult: Neck pain, right arm pain, low back pain, bilateral leg pain, headache History of present illness: Ms. Smith is a 42 year old female who presents today as a new patient. She is a referral from Alice Adler's office. Today she rates her pain a 7 out of 10. Patient states she has pain at multiple areas including her neck with radiating symptoms into her right shoulder and right arm. She does describe this as an aching, pressure sensation that she feels like she was hit with numbness and tingling into her hands. Patient states this has been going on for over a year and has had in the past of right carpal tunnel surgery. Patient also states within the last year she has been experiencing low back pain with bilateral lower extremity pain and does describe this as an aching, throbbing sensation with charley horse sensations into her legs. Patient denies any specific trauma or injury that initially led to the symptoms. She does state that the pain interferes with her ability to perform activities of daily living such as cooking and cleaning. Patient has tried qrdp-agf-yumrgyu medications like Tylenol and ibuprofen along with heat and ice and topicals with no additional relief. Patient has had physical therapy for her neck pain and she states that it did help while she was going however once her sessions were completed she was back to her baseline. 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 Patient is not on any scheduled medications. Her Jean is [id number]. Its been reviewed and appropriate. CC: Silvana Hernadez APRN [facility] Disclaimer: The information contained in this section may have been updated after the patient was seen, as this information can be updated by other users. 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 current occupational exposures/hazards: No caffeine: Yes Review of Systems Review of Systems Review of systems:: pertinent systems reviewed and negative unless documented below Review of systems (narrative): Review of Systems: General: No recent weight changes, no fever, no sleep disturbances Respiratory: No cough, no shortness of air, no recurring pulmonary infections Cardiovascular/peripheral vascular: No chest pain, no palpitations, no edema, no shortness of breath Gastrointestinal: No new onset incontinence, normal bowel movements reported Genitourinary: No new onset incontinence Musculoskeletal: Neck pain, right arm pain, low back pain with bilateral leg pain Psychiatric: [Normal mood/affect] Neurological: [Denies weakness in extremities], [denies balance issues] Meds Home Medications and Allergies Home Medications Medication Instructions Recorded Confirmed Type aspirin 81 mg tablet,delayed 81 mg PO DAILY MIGRAINE 09/30/20 01/04/23 History release (Adult Aspirin Regimen) benzonatate 100 mg capsule 100 mg PO Q8HP PRN Cough #15 caps 12/01/21 01/04/23 Rx ubrogepant 100 mg tablet (Ubrelvy) 100 mg PO ONCE PRN migraine 06/01/22 01/04/23 Rx headache #16 tabs albuterol sulfate 90 mcg/actuation 2 puff inhalation Q6H [place]
[2023-01-04 10:16] VITALS: BP 121/82; PULSE 92; RESP 18; O2SAT 97; BMI 25.0
== END | disposition home or self-care (01) ==
PROVIDERS: PCP Internal Medicine Adolescent Medicine; Visit Provider Nurse Practitioner Family
DX: M50.10 Cervical disc disorder with radiculopathy, unspecified cervical region (principal); M47.22 Other spondylosis with radiculopathy, cervical region; M54.2 Cervicalgia; G44.209 Tension-type headache, unspecified, not intractable; G43.109 Migraine with aura, not intractable, without status migrainosus; M54.50 Low back pain, unspecified; G89.29 Other chronic pain; M54.16 Radiculopathy, lumbar region
CPT/HCPCS: 99202; G0463

== ENCOUNTER → 2023-01-04 10:42 | Outpatient (CLI) | payer OTHER, SELFPAY ==
--- NOTE | 2023-01-04 10:47 | XR_ITS ---
FINAL REPORT CLINICAL HISTORY: PAIN NO ACCIDENT FINDINGS: LUMBAR SPINE Five views demonstrate no acute fracture. The dis spaces are well preserved. There is no malalignment. IMPRESSION: No acute process. Reviewed, Interpreted and Dictated by Otf Powers MD Transcribed by Omar Colvin Authenticated and [facility]
== END ==
PROVIDERS: PCP Internal Medicine Adolescent Medicine; Visit Provider Nurse Practitioner Family
DX: M54.50 Low back pain, unspecified (principal)
CPT/HCPCS: 72110

== ENCOUNTER → 2023-01-12 14:10 | Outpatient (CLI) | payer OTHER, SELFPAY ==
--- NOTE | 2023-01-12 14:12 | MR_ITS ---
FINAL REPORT CLINICAL HISTORY: .LOW BACK PAIN WITH RIGHT LEG PAIN. NO INJURY OR TRAUMA FINDINGS: Multiplanar MR imaging of the lumbar spine was performed without contrast. On the sagittal T2-weighted images, disc degeneration is seen at several levels. The vertebral alignment is normal. There is no evidence of fracture. No bony mass is identified. The conus is seen at approximately the L1 level and has an unremarkable appearance. T12-L1: There is no significant central canal stenosis or neuroforaminal narrowing. L1-2: There is no significant canal stenosis or neural foraminal narrowing. L2-3: There is no significant canal stenosis or neural foraminal narrowing. L3-4: There is an annular disc bulge without significant canal stenosis or neural foraminal narrowing. L4-5: Annular disc bulge with right foraminal disc protrusion. There is moderate right and mild left neuroforaminal narrowing. L5-S1: Annular disc bulge with mild bilateral neuroforaminal narrowing. IMPRESSION: Multilevel degenerative disc disease with right foraminal disc protrusion L4-5 and moderate right neuroforaminal narrowing. Reviewed, Interpreted and Dictated by Yasmany Dumont III, MD Transcribed by Salima Brenner Authenticated and [facility]
== END ==
PROVIDERS: PCP Internal Medicine Adolescent Medicine; Visit Provider Nurse Practitioner Family
DX: M54.50 Low back pain, unspecified (principal)
CPT/HCPCS: 72148; 76376

== ENCOUNTER 2023-01-23 11:01 | Day surgery (SDC) | payer OTHER, SELFPAY ==
[2023-01-23 11:15] VITALS: BP 136/75; BP 137/84; PULSE 87; PULSE 99; RESP 18; TEMP 36.8; O2SAT 96; O2SAT 99; BMI 24.7
[2023-01-23 11:21] VITALS: BP 137/84; PULSE 99; RESP 18; O2SAT 96
[2023-01-23 11:30] VITALS: BP 125/71; PULSE 85; RESP 18; O2SAT 99
--- NOTE | 2023-01-23 11:42 | P.PCN_ITS ---
Procedure Date: 01/23/23 Time: 11:30 Anesthesiologist:: Rik Whitehead CRNA Complications:: None Pre-procedure Diagnosis:: Degenerative disc cervical spine multilevels. Cervical radiculopathy. Cervical spondylosis. Post-procedure Diagnosis:: Same. Indications for Procedure:: Pleasant 42-year-old female comes our clinic today for cervical epidural steroid injection C6-7. Patient is complains of cervical neck pain as well as bilateral arm radicular symptoms. She rates her pain 7/10. Patient's cervical MRI did shows multilevel degenerative disc cervical spine as well as cervical spondylosis. Procedure Details:: Procedure:Cervical epidural steroid injection Informed consent was obtained and the risks and benefits of the procedure were explained to the patient. The patient was taken to the procedure room and noninvasive monitors placed, including noninvasive blood pressure cuff and pulse oximeter. The neck was prepped using Chloraprep as a cleansing solution. The C6- C7 interspace was viewed using fluroscopy. The skin and subcutaneous tissues were anesthetized using lidocaine 1.5% and a 25-gauge needle. After this an 18- gauge Touhy epidural needle was placed into the C6-C7 interspace under fluroscopy guidance and advanced using loss of resistance to air until the epidural space was encountered. After confirmation of needle placement in the epidural space using contrast dye, a solution containing normal saline, 2 mL and Depo-Medrol 80 mg was incrementally injected into the cervical epidural space.~ The patient tolerated the procedure well with no complications. The patient was observed in the Pain Clinic and then discharged home neurologically intact. Plan and Disposition:: Patient was discharged without incident.
== END 2023-01-23 11:30 | disposition home or self-care (01) ==
PROVIDERS: PCP Internal Medicine Adolescent Medicine; Visit Provider Nurse Anesthetist, Certified Registered
DX: M50.123 Cervical disc disorder at C6-C7 level with radiculopathy (principal); M47.22 Other spondylosis with radiculopathy, cervical region
CPT/HCPCS: 62321; J1040; Q9966

== ENCOUNTER → 2023-02-07 14:10 | Outpatient (POV) | payer OTHER, SELFPAY ==
[2023-02-07 14:24] VITALS: BP 140/90; PULSE 104; RESP 20; BMI 26.0
--- NOTE | 2023-02-07 14:35 | EXP.PAIN.SOA ---
[facility] Pain Management SOAP Note Subjective:: Patient is a pleasant 42-year-old female who presents today for follow-up of cervical epidural steroid injection of C5-C6 01/23/2023. We are currently treating the patient for degenerative disc disease of cervical spine with cervical radiculopathy symptoms, cervical spondylosis, cervical facet arthropathy, low back pain with lumbar radiculopathy. Today she rates her pain a 5 out of 10. Patient denies any new trauma or injury. Patient denies any change location or type of pain she experiences. Patient states that she did not notice any additional improvement following this procedure. She states she continues to have significant pain in and around her neck. She does state the pain is worse with certain movements such as bending, lifting or twisting. She does state that it also seems like her symptoms are aggravated with her working. 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 Patient does state the pain interferes with her ability to perform activities of daily living such as cooking and cleaning. From our last visit she was prescribed compounding cream that she states she did not really notice specific improvement. Patient was also prescribe ropinirole 0.5 mg at bedtime and she states that her left leg has gotten much better however that she still continues to have symptoms in her right leg. She states that she did recently go back to Dr. Barbosa's office and they were ordering additional lab work to rule out possible iron deficiency. Patient does also have a history of chronic headaches/migraines and has been put on blockers as well as Ubrelvy and she states this has been helping. Patient's Jean is [id number]. Its been reviewed and appropriate. Review of Systems: General: No recent weight changes, no fever, no sleep disturbances Respiratory: No cough, no shortness of air, no recurring pulmonary infections Cardiovascular/peripheral vascular: No chest pain, no palpitations, no edema, no shortness of breath Gastrointestinal: No new onset incontinence, normal bowel movements reported Genitourinary: No new onset incontinence Musculoskeletal: Neck pain Psychiatric: [Normal mood/affect] Neurological: [Denies weakness in extremities], [denies balance issues] Objective:: Physical Exam: General: Alert and oriented x3, no acute distress, pleasant and cooperative Lungs: Respirations even and unlabored, symmetrical chest expansion Eyes: PERRL Musculoskeletal: Flexion and extension of cervical [spine] somewhat guarded secondary to pain, [antalgic gait noted] positive Kemps test Neurological: Speech clear, no gross sensory deficit [address] [place] [address] Magnetic Resonance Report Signed Patient: Lisa Smith MR#: [id number] : 1980 Acct:[id number] Age/Sex: 42 / F ADM Date: 01/12/23 Loc: RAD Attending Dr: Silvana Hernadez APRN Ordering Physician: Silvana Hernadez APRN Date of Service: 01/12/23 Procedure(s): MR lumbar spine wo con Accession Number(s): [id number] cc: Peter Magallanes MD; Yasmany Dumont MD~ FINAL REPORT CLINICAL HISTORY: .LOW BACK PAIN WITH RIGHT LEG PAIN. NO INJURY OR TRAUMA FINDINGS: Multiplanar MR imaging of the lumbar spine was performed without contrast. On the sagittal T2-weighted images, disc degeneration is seen at several levels. The vertebral alignment is normal. There is no evidence of fracture. No bony mass is identified. The conus is seen at approximately the L1 level and has an unremarkable appearance. T12-L1: There is no significant central canal stenosis or neuroforaminal narrowing. L1-2: There is no significant canal stenosis or neural foraminal narrowing. L2-3: There is no significant canal stenosis or neural foraminal narrowing. L3-4: There is an yannick
== END ==
PROVIDERS: PCP Internal Medicine Adolescent Medicine; Visit Provider Nurse Practitioner Family
DX: M50.10 Cervical disc disorder with radiculopathy, unspecified cervical region (principal); M51.16 Intervertebral disc disorders with radiculopathy, lumbar region; M47.22 Other spondylosis with radiculopathy, cervical region
CPT/HCPCS: 99212; G0463

== ENCOUNTER → 2023-02-07 14:30 | Outpatient (CLI) | payer OTHER, SELFPAY ==
[2023-02-07 15:06] LABS: Basophils # 0.1 K/mm3 (0-0.2); Basophils % 0.8 % (0.1-2.0); Eosinophils # 0.1 K/mm3 (0.0-0.4); Hematocrit 46.9 % (37.0-47.0); Hemoglobin 14.9 g/dL (12.2-16.2); Lymphocytes # 1.8 K/mm3 (0.7-4.5); Lymphocytes % 22.8 % (10-50); Mean Corpuscular HGB Conc 31.7 g/dL (31.8-35.4); Mean Corpuscular Hemoglobin 29.2 pg (27.0-31.2); Mean Corpuscular Volume 92.1 fl (81-99); Monocytes # 0.4 K/mm3 (0.1-1.0); Monocytes % 5.5 % (1.7-9.3); Neutrophils # 5.6 K/mm3 (1.8-7.8); Platelet Count 274 K/mm3 (142-424); Red Blood Count 5.09 M/mm3 (4.20-5.40); Red Cell Distribution Width 12.7 % (11.5-17.5)
[2023-02-07 15:35] LABS: Iron 73 ug/dL (37-170)
[2023-02-07 15:45] LABS: Total Iron Binding Capacity 309 ug/dL (265-497)
[2023-02-07 16:11] LABS: Ferritin 29.4 ng/ml (6.24-137)
== END ==
PROVIDERS: PCP Internal Medicine Adolescent Medicine; Visit Provider Nurse Practitioner Family
DX: E83.10 Disorder of iron metabolism, unspecified (principal); R25.2 Cramp and spasm
CPT/HCPCS: 36415; 82728; 83540; 83550; 85025

== ENCOUNTER 2023-02-23 09:31 | Day surgery (SDC) | payer OTHER, SELFPAY ==
[2023-02-23 09:40] VITALS: BP 123/78; PULSE 92; RESP 18; O2SAT 98; BMI 24.4
[2023-02-23 09:50] VITALS: BP 131/77; PULSE 71; RESP 18; O2SAT 98
[2023-02-23 09:53] VITALS: BP 125/77; PULSE 91; RESP 18; O2SAT 99
[2023-02-23 09:54] VITALS: BP 125/77; PULSE 95; RESP 18; O2SAT 99
--- NOTE | 2023-02-23 09:59 | P.PCN_ITS ---
Procedure Date: 02/23/23 Time: 09:50 Anesthesiologist:: Rik Whitehead CRNA Complications:: None Pre-procedure Diagnosis:: Degenerative disc cervical spine multilevels. Cervical radiculopathy. Cervical spondylosis. Multilevel cervical facet arthropathy. Post-procedure Diagnosis:: Same. Indications for Procedure:: Patient is a very pleasant 42-year-old female comes our clinic today for medial branch blocks cervical C5-6, C6-7 bilaterally. Patient reports posterior cervical neck pain with flexion, extension, left and right rotation. Patient is status post cervical epidural steroid injection. She reports minimal to no relief with the epidural. She rates her pain 6/10. Procedure Details:: Informed consent was obtained and the risk and benefits of the procedure was explained to the patient. Patient was taken to the procedure room where noninvasive monitors were placed, including noninvasive blood pressure cuff as well as pulse oximeter. The area over the posterior cervical spine was cleansed using chlorhexidine as a cleansing solution. I anesthetized the skin and subcutaneous tissues with 1% Lidocaine. I placed 25 -gauge spinal needles into the facet joint/ medial branches of C5-6, C6-7 bilaterally. Needle placement was confirmed with fluoroscopy. After confirmation of needle placement, each site was injected with 1 mL of 1% lidocaine and 0.25 % Marcaine and 10 mg of Depo- Medrol. A total of 20 mg of depo medrol was used for bilateral medial branch blocks of C5-6, C6-7 bilaterally. Patient tolerated the procedure without difficulty. There were no complications. Plan and Disposition:: Patient was discharged without incident.
== END 2023-02-23 09:50 | disposition home or self-care (01) ==
PROVIDERS: PCP Internal Medicine Adolescent Medicine; Visit Provider Nurse Anesthetist, Certified Registered
DX: M47.892 Other spondylosis, cervical region (principal); M50.10 Cervical disc disorder with radiculopathy, unspecified cervical region
CPT/HCPCS: 64490; 64491; J1040; Q9966

== ENCOUNTER → 2023-03-15 10:59 | Outpatient (POV) | payer OTHER, SELFPAY ==
--- NOTE | 2023-03-15 11:28 | EXP.PAIN.SOA ---
[facility] Pain Management SOAP Note Subjective:: Patient is a pleasant 42-year-old female who presents today for follow-up of cervical medial branch block bilaterally C5-C6 and C6-C7 on 02/23/2023. We are currently treating the patient for degenerative disc disease of cervical spine with cervical radiculopathy symptoms, cervical spondylosis, cervical facet arthropathy, low back pain with lumbar radiculopathy. Today she rates her pain a 7 out of 10. Patient denies any new trauma or injury from her last visit. She does state that she has had 100% improvement from this injection however it only lasted 1 day. Patient states she was able to increase her activity with decreased pain symptoms and felt more functional during that time. Today she does state that she is back to her baseline. Patient does state that she continues to have significant pain at multiple areas including her neck and low back and legs. She states her neck pain is worse with certain movements such as bending, twisting or lifting objects. 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 Patient does state that occasionally she will feel like the leg will go to give out or that she has popping in her joints. Patient does state occasionally she will also have trouble grasping with her hands. Patient was prescribed compounding cream however she states she did not notice significant improvement. Patient is prescribed ropinirole 0.5 mg at bedtime for her restless leg symptoms that have been helping. Patient does have a history of chronic headaches/migraines and is on Ubrelvy that is helping. Her Jean is [id number]. Its been reviewed and appropriate. Review of Systems: General: No recent weight changes, no fever, no sleep disturbances Respiratory: No cough, no shortness of air, no recurring pulmonary infections Cardiovascular/peripheral vascular: No chest pain, no palpitations, no edema, no shortness of breath Gastrointestinal: No new onset incontinence, normal bowel movements reported Genitourinary: No new onset incontinence Musculoskeletal: Neck pain Psychiatric: [Normal mood/affect] Neurological: [Denies weakness in extremities], [denies balance issues] Objective:: Physical Exam: General: Alert and oriented x3, no acute distress, pleasant and cooperative Lungs: Respirations even and unlabored, symmetrical chest expansion Eyes: PERRL Musculoskeletal: Flexion and extension of cervical [spine] somewhat guarded secondary to pain, positive Kemps test Neurological: Speech clear, no gross sensory deficit Assessment:: Degenerative disc disease of cervical spine with cervical radiculopathy symptoms, cervical spondylosis, cervical facet arthropathy, low back pain with lumbar radiculopathy symptoms Plan:: Patient is experiencing significant pain in her neck with limited range of motion. Patient did have a positive Kemps test with limited range of motion of her cervical spine. Patient did previously have 100% improvement with her first cervical medial branch block. I have discussed with the patient that she may benefit from a second cervical medial branch block. Risk and benefits were explained to the patient and she would like to proceed forward with this plan of care. If she does get significant improvement with this injection we will plan on proceeding forward with the cervical RFA in the future. I will also order the patient baclofen 10 mg at bedtime and provide a 2-week supply of this medication. Patient will be scheduled for a cervical medial branch block bilaterally C5-C6 and C6-C7. Patient has been instructed to contact the clinic with any concerns before the next appointment. Dr. Moore has reviewed this note and agrees with this plan of care. This note was dictated using voice recognition software and make contain errors or omissions. [facility] Disclaimer:
[2023-03-15 13:39] VITALS: BP 130/82; PULSE 94; RESP 18; O2SAT 99; BMI 24.4
== END | disposition home or self-care (01) ==
PROVIDERS: PCP Internal Medicine Adolescent Medicine; Visit Provider Nurse Practitioner Family
DX: M50.10 Cervical disc disorder with radiculopathy, unspecified cervical region (principal); M47.22 Other spondylosis with radiculopathy, cervical region; M54.16 Radiculopathy, lumbar region
CPT/HCPCS: 99212; G0463

== ENCOUNTER 2023-03-27 10:28 | Day surgery (SDC) | payer OTHER, SELFPAY ==
[2023-03-27 10:34] VITALS: BP 134/78; PULSE 84; RESP 16; TEMP 36.8; O2SAT 99; BMI 24.4
[2023-03-27 10:44] VITALS: BP 146/77; PULSE 89; RESP 18; O2SAT 100
[2023-03-27 10:45] VITALS: BP 146/77; PULSE 89; RESP 18; O2SAT 100
[2023-03-27 11:00] VITALS: BP 115/79; PULSE 80; RESP 20
--- NOTE | 2023-03-27 11:02 | P.PCN_ITS ---
Procedure Date: 03/27/23 Time: 10:50 Anesthesiologist:: Rik Whitehead CRNA Complications:: None Pre-procedure Diagnosis:: Degenerative disc cervical spine multilevels. Cervical facet arthropathy. Multilevel cervical spondylosis. Cervical radiculopathy. Post-procedure Diagnosis:: Same. Indications for Procedure:: Patient is a very pleasant 42-year-old female that comes our clinic today for repeat cervical medial branch block. Patient responded very well to these injections in the past. She reports 2 to 3 days of complete relief in terms of her overall cervical neck pain. She rates her pain today 7/10. Procedure Details:: Informed consent was obtained and the risk and benefits of the procedure was explained to the patient. Patient was taken to the procedure room where noninvasive monitors were placed, including noninvasive blood pressure cuff as well as pulse oximeter. The area over the posterior cervical spine was cleansed using chlorhexidine as a cleansing solution. I anesthetized the skin and subcutaneous tissues with 1% Lidocaine. I placed 25 -gauge spinal needles into the facet joint/ medial branches of C5-6, C6-7 bilaterally. Needle placement was confirmed with fluoroscopy. After confirmation of needle placement, each site was injected with 1 mL of 1% lidocaine and 0.25 % Marcaine and 10 mg of Depo- Medrol. A total of 20 mg of depo medrol was used for bilateral medial branch blocks of C5-6, C6-7 bilaterally. Patient tolerated the procedure without difficulty. There were no complications. Plan and Disposition:: Patient was discharged without incident.
== END 2023-03-27 11:00 | disposition home or self-care (01) ==
PROVIDERS: PCP Internal Medicine Adolescent Medicine; Visit Provider Nurse Anesthetist, Certified Registered
DX: M47.892 Other spondylosis, cervical region (principal); M50.122 Cervical disc disorder at C5-C6 level with radiculopathy; M50.123 Cervical disc disorder at C6-C7 level with radiculopathy
CPT/HCPCS: 64490; 64491; J1040; Q9966

== ENCOUNTER → 2023-04-12 12:52 | Outpatient (POV) | payer OTHER, SELFPAY ==
--- NOTE | 2023-04-12 13:18 | EXP.PAIN.SOA ---
[facility] Pain Management SOAP Note Subjective:: Patient is a pleasant 42-year-old female who presents today for follow-up of her second cervical medial branch block bilaterally C5-C6 and C6-C7 on 03/27/2023. We are currently treating the patient for degenerative disc disease of cervical spine with cervical radiculopathy symptoms, cervical facet arthropathy, cervical spondylosis, low back pain with lumbar radiculopathy symptoms. Today she rates her pain a 5 out of 10. Patient denies any new trauma or injury. She denies any change location or type of pain she experiences. She does state that she had 100% improvement following this block however it only lasted 2 days. Patient did have 100% improvement following her first cervical medial branch block however it only lasted 1 day. Patient does state that during that time she did feel more functional and was able to do more activities including ADLs with decreased pain symptoms. Today she states she is back to her baseline. She states her neck pain continues to be an issue on a daily basis and does limit her ability to do ADLs such as cooking or cleaning. 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 She is currently prescribed compounded cream and ropinirole 0.5 mg at bedtime. Patient denies any side effects from this. She was prescribed tizanidine however she states with it and the trazodone she does not feel like she can function. Her Jean is [id number]. Its been reviewed and appropriate. Review of Systems: General: No recent weight changes, no fever, no sleep disturbances Respiratory: No cough, no shortness of air, no recurring pulmonary infections Cardiovascular/peripheral vascular: No chest pain, no palpitations, no edema, no shortness of breath Gastrointestinal: No new onset incontinence, normal bowel movements reported Genitourinary: No new onset incontinence Musculoskeletal: Neck pain Psychiatric: [Normal mood/affect] Neurological: [Denies weakness in extremities], [denies balance issues] Objective:: Physical Exam: General: Alert and oriented x3, no acute distress, pleasant and cooperative Lungs: Respirations even and unlabored, symmetrical chest expansion Eyes: PERRL Musculoskeletal: Flexion and extension of cervical [spine] somewhat guarded secondary to pain, positive Kemps test Neurological: Speech clear, no gross sensory deficit Assessment:: Degenerative disc disease of cervical spine with cervical radiculopathy symptoms, cervical facet arthropathy, cervical spondylosis, low back pain with lumbar radiculopathy symptoms, restless leg Plan:: Patient continues to experience significant pain in her neck with limited range of motion. Patient did have a positive Kemps test during today's exam. Patient did have 2 successful cervical medial branch blocks with 100% improvement of both of these injections however only lasted short-term. Patient has tried and failed conservative therapy such as oral medications, heat and ice, topicals, physical therapy, at home stretching and exercise for longer than 12 weeks. I have discussed with the patient that she may benefit from a cervical RFA. Risk and benefits were discussed with the patient and she would like to proceed forward with this plan of care. I will also send in a refill of her ropinirole 0.5 mg at bedtime and provide a 1 month supply of this medication. Patient will be scheduled for a cervical RFA bilaterally C5-C6 and C6-C7. Patient has been instructed to contact the clinic with any concerns before the next appointment. Dr. Moore has reviewed this note and agrees with this plan of care. This note was dictated using voice recognition software and make contain errors or omissions. [facility] Disclaimer: The information contained in this section may have been updated after the patient was seen, as this information can be updated by other users. Medical History (Review
[2023-04-12 14:27] VITALS: BP 154/82; PULSE 96; RESP 18; O2SAT 99; BMI 24.4
== END | disposition home or self-care (01) ==
PROVIDERS: PCP Internal Medicine Adolescent Medicine; Visit Provider Nurse Practitioner Family
DX: M50.10 Cervical disc disorder with radiculopathy, unspecified cervical region (principal); M47.22 Other spondylosis with radiculopathy, cervical region; M54.16 Radiculopathy, lumbar region; G25.81 Restless legs syndrome
CPT/HCPCS: 99212; G0463

== ENCOUNTER 2023-05-01 13:04 | Day surgery (SDC) | payer OTHER, SELFPAY ==
[2023-05-01 13:24] VITALS: BP 145/85; BP 147/77; PULSE 79; PULSE 87; RESP 20; TEMP 36.5; O2SAT 97; BMI 23.9
--- NOTE | 2023-05-01 14:09 | P.PCN_ITS ---
Procedure Date: 05/01/23 Time: 13:50 Anesthesiologist:: Rik Whitehaed CRNA Complications:: None Pre-procedure Diagnosis:: Degenerative disc cervical spine multilevels. Cervical radiculopathy. Cervical spondylosis. Multilevel cervical facet arthropathy. Post-procedure Diagnosis:: Same. Indications for Procedure:: Patient is a pleasant 42-year-old female that presents today for right C5-6, C6- 7 cervical radiofrequency ablation. Patient had 2 days of significant improvement terms of her overall cervical neck pain with bilateral C5-6, C6-7 medial branch blocks. Procedure Details:: Informed consent was obtained and the risk and benefits of the procedure was explained to the patient. Patient was placed prone on the procedure table. The patient was prepped and draped in sterile fashion. C-arm fluoroscopy was used to view the lumbar spine. The skin and subcutaneous tissues were anesthetized using lidocaine. I placed 20-gauge RF needles into the right facet joints of C5- C6 and C6-C7 levels on the right side. We underwent sensory stimulation. There is good sensory stimulation at 0.8 V. We underwent motor stimulation. There is no motor stimulation at 2.5 V. We then anesthetized these levels with lidocaine and Depo-Medrol. I used a total of 40 mg Depo-Medrol for both levels. I then burned both levels of C5-C6 and C6-C7 facet joint/medial branches on the right side for 4 minutes at 80 ?C. Patient tolerated the procedure well with no complication. Plan and Disposition:: Patient was discharged without incident.
[2023-05-01 15:22] VITALS: BP 147/91; PULSE 91; RESP 18; O2SAT 99
[2023-05-01 15:24] VITALS: BP 147/91; PULSE 91; RESP 18; O2SAT 99
== END 2023-05-01 14:08 | disposition home or self-care (01) ==
PROVIDERS: PCP Internal Medicine Adolescent Medicine; Visit Provider Nurse Anesthetist, Certified Registered
DX: M50.10 Cervical disc disorder with radiculopathy, unspecified cervical region (principal); M47.22 Other spondylosis with radiculopathy, cervical region
CPT/HCPCS: 64633; 64634; J1040; Q9966

== ENCOUNTER 2023-05-15 11:12 | Day surgery (SDC) | payer OTHER, SELFPAY ==
[2023-05-15 11:34] VITALS: BP 120/73; PULSE 100; RESP 18; TEMP 36.7; O2SAT 96; BMI 24.4
[2023-05-15 12:00] VITALS: BP 126/77; PULSE 91; RESP 18; O2SAT 98
[2023-05-15 12:02] VITALS: BP 126/77; PULSE 94; RESP 18; O2SAT 98
[2023-05-15 12:08] VITALS: BP 122/78; PULSE 91; RESP 16; O2SAT 96
--- NOTE | 2023-05-15 12:09 | EXP.PAIN.PRO ---
Procedure Date: 05/15/23 Time: 11:50 Anesthesiologist:: Rik Whitehead CRNA Complications:: None Pre-procedure Diagnosis:: Degenerative disc cervical spine multilevels. Cervical radiculopathy. Cervical spondylosis. Multilevel cervical facet arthropathy. Post-procedure Diagnosis:: Same. Indications for Procedure:: Patient is a very pleasant 42-year-old female comes our clinic today for a left C5-6, C6-7 cervical radiofrequency ablation. Patient is doing very well on the right side after receiving RFA on the right same levels. Patient describes left posterior cervical neck pain as well as left trapezius pain. She rates her pain 6/10. Procedure Details:: Informed consent was obtained and the risk and benefits of the procedure was explained to the patient. Patient was placed prone on the procedure table. The patient was prepped and draped in sterile fashion. C-arm fluoroscopy was used to view the lumbar spine. The skin and subcutaneous tissues were anesthetized using lidocaine. I placed 20-gauge RF needles into the facet joints of C5- C6 and C6-C7 levels on the left side. We underwent sensory stimulation. There is good sensory stimulation at 0.8 V. We underwent motor stimulation. There is no motor stimulation at 2.5 V. We then anesthetized these levels with lidocaine and Depo-Medrol. I used a total of 40 mg Depo-Medrol for both levels. I then burned both levels of C5-C6 and C6-C7 facet joint/medial branches on the left side for 4 minutes at 80 ?C. Patient tolerated the procedure well with no complication. Plan and Disposition:: Patient was discharged without incident.
== END 2023-05-15 12:08 | disposition home or self-care (01) ==
PROVIDERS: PCP Internal Medicine Adolescent Medicine; Visit Provider Nurse Anesthetist, Certified Registered
DX: M50.122 Cervical disc disorder at C5-C6 level with radiculopathy (principal); M50.123 Cervical disc disorder at C6-C7 level with radiculopathy; M47.22 Other spondylosis with radiculopathy, cervical region
CPT/HCPCS: 64633; 64634; J1040

== ENCOUNTER → 2023-05-31 09:56 | Outpatient (POV) | payer OTHER, SELFPAY ==
[2023-05-31 10:08] VITALS: BP 136/89; PULSE 98; RESP 18; O2SAT 97; BMI 24.4
--- NOTE | 2023-05-31 12:21 | EXP.PAIN.SOA ---
[facility] Pain Management SOAP Note Subjective:: Patient is a pleasant 42-year-old female who presents today for follow-up of left cervical RFA on 05/15/2023. Patient is currently being treated for degenerative disc disease of cervical spine with cervical radiculopathy symptoms, cervical facet arthropathy, cervical spondylosis, low back pain with lumbar radiculopathy symptoms, chronic pain syndrome. Today she rates her pain a 3 out of 10. Patient states that the left side is doing remarkably well. She states that it has been at least 50% improvement or more however she does state her pain today is more along the right side that it is slowly been coming back to its baseline. Patient denies any new injury or trauma. Patient states she continues to have chronic pain in her neck that radiates into her shoulders. She does state following this ablation that her shoulder symptoms are still better and not bothering her as much. Patient has been able to increase her activity with decreased pain symptoms. Patient has been prescribed tizanidine in the past along with compounding cream and ropinirole 0.5 milligrams at bedtime. Patient states that she has not noticed continued improvement with the ropinirole and that the leg symptoms are very random. Patient also takes trazodone at night and states that she cannot tolerate taking the tizanidine with the trazodone. Patient denies any heart or kidney issues. Her Jean has been reviewed and is appropriate. Review of Systems: General: No recent weight changes, no fever, no sleep disturbances Respiratory: No cough, no shortness of air, no recurring pulmonary infections Cardiovascular/peripheral vascular: No chest pain, no palpitations, no edema, no shortness of breath Gastrointestinal: No new onset incontinence, normal bowel movements reported Genitourinary: No new onset incontinence Musculoskeletal: Neck pain Psychiatric: [Normal mood/affect] Neurological: [Denies weakness in extremities], [denies balance issues] Objective:: Physical Exam: General: Alert and oriented x3, no acute distress, pleasant and cooperative Lungs: Respirations even and unlabored, symmetrical chest expansion Eyes: PERRL Musculoskeletal: Flexion and extension of cervical [spine] somewhat guarded secondary to pain Neurological: Speech clear, no gross sensory deficit Assessment:: Degenerative disc disease of cervical spine with cervical radiculopathy symptoms, cervical facet arthropathy, cervical spondylosis, low back pain with lumbar radiculopathy symptoms, chronic pain syndrome Plan:: I have discussed with the patient that she may benefit from spinal cord stimulator trial in the future. Risk and benefits and educational handouts were given during today's visit. We will follow-up with this on future visits. I will send in a 2-week supply of meloxicam 15 mg daily. Patient has been counseled to discontinue all other NSAIDs while taking this medication and to take it with food to minimize GI upset. Patient will return to clinic in 2 month for reevaluation of symptoms and plan of care. I have discussed with the patient if she does get improvement with the meloxicam she can call our office before her next appointment for additional refills. Patient has been instructed to contact the clinic with any concerns before the next appointment. Dr. Moore has reviewed this note and agrees with this plan of care. This note was dictated using voice recognition software and make contain errors or omissions. [facility] Disclaimer: The information contained in this section may have been updated after the patient was seen, as this information can be updated by other users. Medical History Insomnia Migraines Surgical History H/O tubal ligation History of carpal tunnel release RIGHT Hx of cholecystectomy Social History (Reviewed 05/15/23 @ 11:35 by
== END | disposition home or self-care (01) ==
PROVIDERS: PCP Internal Medicine Adolescent Medicine; Visit Provider Nurse Practitioner Family
DX: M50.10 Cervical disc disorder with radiculopathy, unspecified cervical region (principal); M47.22 Other spondylosis with radiculopathy, cervical region; M54.16 Radiculopathy, lumbar region; G89.4 Chronic pain syndrome
CPT/HCPCS: 99212; G0463

== ENCOUNTER → 2023-07-05 10:50 | Outpatient (CLI) | payer OTHER, SELFPAY ==
[2023-07-05 12:18] LABS: Ferritin 89.2 ng/ml (6.24-137)
== END ==
PROVIDERS: PCP Internal Medicine Adolescent Medicine; Visit Provider Nurse Practitioner Family
DX: E83.10 Disorder of iron metabolism, unspecified (principal); M54.16 Radiculopathy, lumbar region
CPT/HCPCS: 36415; 82728

== ENCOUNTER → 2023-08-02 09:10 | Outpatient (POV) | payer OTHER, SELFPAY ==
--- NOTE | 2023-08-02 09:23 | A.OFFVIS_ITS ---
[facility] Pain Management SOAP Note Subjective:: Patient is a pleasant 43-year-old female who presents today for 2-month follow- up. Patient is currently being treated for degenerative disc disease of cervical spine with cervical radiculopathy symptoms, cervical facet arthropathy, cervical spondylosis, low back pain with lumbar radiculopathy symptoms, chronic pain syndrome. Today she rates her pain a 4 out of 10. Patient does state that she feels like her neck is back to its baseline patient denies any new trauma or injury from our last visit. Patient did previously have a cervical RFA in that did provide at least 50% improvement that was more prominent on the left. She does state today though that her low back and right leg symptoms are really starting to interfere with her daily life. Patient does describe this as a constant aching, throbbing sensation with numbness and tingling down her entire right extremity. Patient does state that the pain interferes with her ability perform activities of daily living such as cooking or cleaning or even simple ambulation. Patient does state that she thought she could do more around the house a few days ago and was working in her shop however because significant pain radiating down her right leg that she had to lay around in the bed for 3 days with a heating pad. Patient does state that she will occasionally have swelling into her right lower extremity and that whenever she is up and ambulating the weight and pressure causes worsening pain. Patient also states that she feels like she stumbles a lot due to her right leg. Patient states that she is unsure if she just does not pick it up as well but it does make her worry. Patient is prescribed tizanidine along with compounding cream and ropinirole 0.5 mg at bedtime. At our last visit we did prescribe meloxicam 15 mg daily. She states this has helped with her day-to-day pain. She does state that she called and got a refill and does not need any additional on this medication today. She denies any side effects from these medications. Her Jean has been reviewed and is appropriate. Review of Systems: General: No recent weight changes, no fever, no sleep disturbances Respiratory: No cough, no shortness of air, no recurring pulmonary infections Cardiovascular/peripheral vascular: No chest pain, no palpitations, no edema, no shortness of breath Gastrointestinal: No new onset incontinence, normal bowel movements reported Genitourinary: No new onset incontinence Musculoskeletal: Low back pain, right leg pain Psychiatric: [Normal mood/affect] Neurological: [Denies weakness in extremities], [denies balance issues] Objective:: Physical Exam: General: Alert and oriented x3, no acute distress, pleasant and cooperative Lungs: Respirations even and unlabored, symmetrical chest expansion Eyes: PERRL Musculoskeletal: Flexion and extension of lumbar [spine] somewhat guarded secondary to pain, [antalgic gait noted] positive right leg raise with decreased sensation to light touch and decreased reflexes Neurological: Speech clear, no gross sensory deficit Assessment:: degenerative disc disease of cervical spine with cervical radiculopathy symptoms, cervical facet arthropathy, cervical spondylosis, low back pain with lumbar radiculopathy symptoms, chronic pain syndrome Plan:: Patient is experiencing significant pain in her low back with radiating symptoms down her entire right leg. Patient did have limited range of motion of her lumbar spine along with a positive right leg raise and decreased sensation to light touch and decreased reflexes during today's exam. I have discussed with patient that she may benefit from a right transforaminal epidural steroid injection. Risk and benefits were discussed with the patient and she would like to proceed forward with this plan of care. Patient is not on a blood thinners. I will also send in refills of her ropinirole 0.5 mg at bedtime with a 2-month supply of this medication. Patient will be scheduled for a right transforaminal epidural steroid injection L4-L5 and L5-S1 under fluoroscopy. Patient has been instructed to contact the clinic with any concerns before the next appointment. Dr. Moore has reviewed this note and agrees with this plan of care. This note was dictated using voice recognition software and make contain errors or omissions. [facility] Disclaimer: The information contained in this section may have been updated after the patient was seen, as this information can be updated by other users. 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
[2023-08-02 12:39] VITALS: BP 131/85; PULSE 94; RESP 18; O2SAT 97; BMI 23.6
== END ==
LOC: SC.PAIN 09:11
PROVIDERS: PCP Internal Medicine Adolescent Medicine; Visit Provider Nurse Practitioner Family
DX: M50.10 Cervical disc disorder with radiculopathy, unspecified cervical region (principal); M47.22 Other spondylosis with radiculopathy, cervical region; M54.16 Radiculopathy, lumbar region; G89.4 Chronic pain syndrome
CPT/HCPCS: 99212; G0463

== ENCOUNTER → 2023-09-07 15:07 | Outpatient (POV) | payer OTHER, SELFPAY ==
[2023-09-07 15:49] VITALS: BP 140/84; PULSE 114; RESP 20
--- NOTE | 2023-09-07 16:18 | A.OFFVIS_ITS ---
[facility] Pain Management SOAP Note Subjective:: Patient is a pleasant 43-year-old female who presents today for insurance denial of transforaminal epidural. We are currently treating the patient for degenerative disc disease of cervical and lumbar spine with cervical and lumbar radiculopathy symptoms, cervical facet arthropathy, cervical spondylosis, chronic pain syndrome. Today she rates her pain a 8 out of 10. Patient denies any new trauma or injury. Patient does states she continues to have chronic pain throughout her neck and low back with radiating symptoms. Patient states the pain is constant it is and does interfere with everyday life even the simplest of tasks are difficult such as cooking and cleaning. Patient has tried [id number] Tylenol and ibuprofen along with heat and ice and topicals with minimal relief. Her Jean has been reviewed and is appropriate. Review of Systems: General: No recent weight changes, no fever, no sleep disturbances Respiratory: No cough, no shortness of air, no recurring pulmonary infections Cardiovascular/peripheral vascular: No chest pain, no palpitations, no edema, no shortness of breath Gastrointestinal: No new onset incontinence, normal bowel movements reported Genitourinary: No new onset incontinence Musculoskeletal: Neck pain, low back pain Psychiatric: [Normal mood/affect] Neurological: [Denies weakness in extremities], [denies balance issues] Objective:: Physical Exam: General: Alert and oriented x3, no acute distress, pleasant and cooperative Lungs: Respirations even and unlabored, symmetrical chest expansion Eyes: PERRL Musculoskeletal: Flexion and extension of lumbar [spine] somewhat guarded secondary to pain, [antalgic gait noted] Neurological: Speech clear, no gross sensory deficit Assessment:: Degenerative disc disease of cervical and lumbar spine with cervical and lumbar radiculopathy symptoms, chronic pain syndrome Plan:: Patient continues to experience significant pain in multiple areas. I have discussed with the patient that I will order referral for physical therapy for her low back and leg symptoms. I will also send her for neurosurgery consult to Dr. Flores for evaluation and treatment of her cervical and lumbar spine. Patient will return to clinic in 1 month for reevaluation of symptoms and plan of care. Patient has been instructed to contact the clinic with any concerns before the next appointment. Dr. Moore has reviewed this note and agrees with this plan of care. This note was dictated using voice recognition software and make contain errors or omissions. [facility] Disclaimer: The information contained in this section may have been updated after the patient was seen, as this information can be updated by other users. 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
== END ==
LOC: SC.PAIN 15:07
PROVIDERS: PCP Internal Medicine Adolescent Medicine; Visit Provider Nurse Practitioner Family
DX: M50.10 Cervical disc disorder with radiculopathy, unspecified cervical region (principal); M51.16 Intervertebral disc disorders with radiculopathy, lumbar region; G89.4 Chronic pain syndrome
CPT/HCPCS: 99212; G0463

== ENCOUNTER 2023-09-13 13:40 | Outpatient (RCR) | payer OTHER, SELFPAY ==
--- NOTE | 2023-09-13 15:35 | HMH.PTOPEV ---
PT Outpatient Evaluation Rehab PT Outpatient Evaluation Start: 09/13/23 14:22 Freq: Status: Active Protocol: Document 09/13/23 14:22 CHADD (Rec: 09/13/23 14:37 CHADD [id number]) E-signed By Cm Sauceda, PT Outpatient Therapy Subjective History Subjective History Pt reports insidious onset right sided LBP beginning ~2 yrs ago. Pt reports pain has progressively intensified over the last ~ 6 months, and reports pain from right hip to right foot (posterior aspect of RLE). Pt also reports episodes of right LE weakness as well, and intermittent s/s in LLE, however, 'the right side is way worse.' Pt reports previous lumbar MRI has revealed 'a buldging disc.' PMH: chronic neck pain w/ stenosis New diagnosis of cancer in past 12 No months? Chief Complaint Pain,Stiff,Gives out/Unstable, Paresthesia,Weakness Symptom Type Ache,Sharp,Dull,Stabbing, Numbness,Tingling,Shooting Symptoms Relieved By Rest/Positioning,Heat Symptoms Aggravated By Sitting,Standing,Twisting, Walking,Lifting Prior Functional Limitations Lifting,Standing,Sitting, Walking Current Functional Limitations Lifting,Standing,Sitting, Walking,Bending/Stooping Symptom Description Constant but Variable Level of pain today (0-10) 5 Pain scale - at its best (0-10) 5 Pain scale - at its worst (0-10) 8 Lumbopelvic Eval Posture Thoracic Spine Posture Standing Position Neutral Lumbar Spine Posture Standing Position Flattened Gait Observation General Gait Pattern Observation Antalgic Gait Palapation tenderness left lumbar spinal tenderness Yes: 2/4 paraspinal tenderness Yes: 1-2/4 Lumbar/Sacral Palpation Findings Tenderness right lumbar spinal tenderness Yes: 2-3/4 paraspinal tenderness Yes: 3/4 buttock tenderness Yes: 2-3/4 Lumbar/Sacral Palpation Findings Tenderness,Trigger Point, Muscle Guarding Accessory Movement L-spine Vertebrae Accessory Movements Central P/A [place] that Elicit Symptoms L3 right L4 right L5 right Range of Motion Lumbar Spine Active Flexion Range of 0-15 Motion (degrees) Lumbar Spine Active Extension Range of 0-10 Motion (degrees) Left Lumbar Spine Lateral Flexion Active 0-25 Range of Motion (degrees) Right Lumbar Spine Lateral Flexion 0-10 Active Range of Motion (degrees) Lumbar Spine ROM Limitations Pain Manual Muscle Test Left Knee Extension Strength Grade 5 Normal Knee Flexion Strength Grade 5 Normal Hip Flexion Strength Grade 5 Normal Extensor Hallucis Longus Strength Grade 5 Normal Ankle Dorsiflexion Strength Grade 5 Normal Gastronemius/Soleus Strength Grade 5 Normal Right Knee Extension Strength Grade 4- Good- Knee Flexion Strength Grade 4- Good- Hip Flexion Strength Grade 4- Good- Extensor Hallucis Longus Strength Grade 4- Good- Ankle Dorsiflexion Strength Grade 4- Good- Gastronemius/Soleus Strength Grade 4- Good- Special Tests Hip Piriformis Test Negative Left,Positive Right Sciatic Nerve Tension Test Negative Left,Positive Right Reverse Sciatic Nerve Tension Test Negative Left,Negative Right Lumbar Long [place] Distraction Test/Manual Positive Traction Oswestry Index Section 1 Pain Intensity The pain is severe and does not vary much Section 2 Personal Care (Washing,Dresing) change my way of washing or dressing in order to avoid pain Section 3 Lifting I can lift heavy weights, but it gives me extra pain Section 4 Walking I cannot walk more than 1/2 mile without increasing pain Section 5 Sitting Pain prevents me from sitting for more than one hour Section 6 Standing I cannot stand more than 10 minutes without increasing pain Section 7 Sleeping Pain prevents me from sleeping at all Section 8 Social Life My social life is normal and gives me no extra pain Section 9 Traveling I get extra pain while traveling which compels me to seek alternate fo Section 10 Changing Degreee of Pain My pain is gradually getting worse Score and Risk Level Oswestry Sc 27 Oswestry Risk Level Severe Disability Outpatient Therapy Assessment Impairments Problems/Impairmments Palpation Tenderness,Impaired Range of Motion,Impaired Strength,Impaired Gait Pattern ,Impaired Walking,Impaired Standing,Impaired Sitting, Impaired Lifting,Impaired Household Care,Subjective C/O Pain,Impaired Self Care/Self Management Prognosis Rehab Potential Good Clinical Impression Consistent with Diagnosis Yes Short Term Goals Number of Weeks 4 Decreased Palpation Tenderness Yes: 1-2/4 lumbar mm Increase Range of Motion Yes: 50-75% of WFL LUMBAR AROM Increase Strength Yes: 4/5 RLE MM Increase Ability to Walk Yes: 30MIN Increase Ability to Stand Yes: 30MIN Increase Ability to Sit Yes: 30MIN Improve Ability For Household Care Yes: 30MIN Decrease Subjective C/O Pain Yes: 3-4/10 W/ABOVE ACTIVITIES Patient to be Ind w/ HEP Yes Drip Pumper Goals Number of Weeks 8-10 Decreased Palpation Tenderness Yes: 0-1/4 LUMBAR,HIP MM Increase Range of Motion Yes: WFL LUMBAR AROM Increase Strength Yes: 4+-5/5 RLE MM Improve Gait Pattern without Assistive Yes: WFL Device Increase Ability to Walk Yes: 60MIN Increase Ability to Stand Yes: 60MIN Increase Ability to Sit Yes: 60MIN Improve Ability For Household Care Yes: 60MIN Decrease Subjective C/O Pain Yes: 0-2/10 W/ABOVE ACTIVITIES Patient to be Ind w/ Advanced HEP Yes Outpatient Therapy Plan of Care Treatment Plan May Include Therapeutic Exercise Including Home Yes Exercise Program Manual Therapy Techniques Yes Neuromuscular Re-education Yes Therapeutic Activities to Return to Yes Previous Functional/Work Level Gait Training Yes ADL/Self Care Education Yes Mechanical Traction Yes Dry Needling Yes Thermal Modalities Yes Electrical Stimulation Yes Ultrasound/Phonophoresis Yes Eval/Re-Eval Yes Frequency Times per week 2-3 Duration Number of Weeks 8-10 Addendums This patient is a candidate for social No or vocational rehab? Patient/Guardian verbally acknowledges Yes understanding of treatment program and consents to further treatment? Patient/Guardian verbally acknowledges Yes understanding of diagnosis, prognosis and goals for treatment? Eval Complexity PT Charges 42572 - Moderate Complexity Shoulder/Elbow Eval Shoulder Objective Measurements Elbow Objective Measurements PHYSICIAN CERTIFICATION: I certify the specified therapy services for Lisa Smith are required, authorized, and reviewed every 30 days.
== END 2023-09-13 15:00 | disposition home or self-care (01) ==
LOC: PT 13:40
PROVIDERS: Visit Provider Nurse Practitioner Family
DX: M54.50 Low back pain, unspecified (principal); M79.604 Pain in right leg; M79.605 Pain in left leg
CPT/HCPCS: 97163

== ENCOUNTER 2023-10-04 14:14 | Outpatient (POV) | payer OTHER, SELFPAY ==
--- NOTE | 2023-10-04 14:19 | A.OFFVIS_ITS ---
[facility] Pain Management SOAP Note Subjective:: Patient is a pleasant 43-year-old female who presents today for 1 month follow- up. We are currently treating the patient for degenerative disc disease of cervical and lumbar spine with cervical and lumbar radiculopathy symptoms, cervical facet arthropathy, cervical spondylosis, chronic pain syndrome. Today she rates her pain a 5 out of 10. Patient denies any new trauma or injury. She does state better denies in our last visit with her. She does continue to have her same aches and pains in her neck with headache and radiating symptoms worse on the right side as well as low back and leg symptoms. From our last visit she states that she has not heard from the neurosurgery consult. Patient also states that she did go for her first physical therapy evaluation and they have not called her back to let her know how many visits have been approved for her insurance. Patient has been tried on meloxicam, ropinirole and tizanidine from our office. She states that overall these medications have helped some. She does state that initially in the mornings she typically does better but as the day goes on she does have worsening pain that does interfere with her activities of daily living. She states that it does affect her mood due to being in constant pain. Patient has also been talked to regarding possible spinal cord stimulator trial in the past and she states that she has lot more along this and is still thinking that that is a possibility in the future. Her Jean has been reviewed and is appropriate. Review of Systems: General: No recent weight changes, no fever, no sleep disturbances Respiratory: No cough, no shortness of air, no recurring pulmonary infections Cardiovascular/peripheral vascular: No chest pain, no palpitations, no edema, no shortness of breath Gastrointestinal: No new onset incontinence, normal bowel movements reported Genitourinary: No new onset incontinence Musculoskeletal: Neck pain, low back pain Psychiatric: [Normal mood/affect] Neurological: [Denies weakness in extremities], [denies balance issues] Objective:: Physical Exam: General: Alert and oriented x3, no acute distress, pleasant and cooperative Lungs: Respirations even and unlabored, symmetrical chest expansion Eyes: PERRL Musculoskeletal: Flexion and extension of cervical [spine] somewhat guarded secondary to pain, [antalgic gait noted] Neurological: Speech clear, no gross sensory deficit Assessment:: Degenerative disc disease of cervical and lumbar spine with cervical and lumbar radiculopathy symptoms, cervical facet arthropathy, cervical spondylosis, chronic pain syndrome Plan:: I discussed with the patient that I do still believe she had significant improvement with a spinal cord stimulator trial. Risk and benefits were discussed with the patient and we will continue to follow-up with this at future visits. I will refill the patient's tizanidine 4 mg 3 times a day, ropinirole 0.5 mg at bedtime, meloxicam 15 mg daily and provide a 1 month supply of these medications. I will also send in a 2-week dose of tramadol 50 mg twice daily. Patient has been counseled to contact our office if this does provide sign ificant improvement and she would like refills. Patient will return to clinic in 1 month for reevaluation of symptoms and plan of care. Patient has been instructed to contact the clinic with any concerns before the next appointment. Dr. Moore has reviewed this note and agrees with this plan of care. This note was dictated using voice recognition software and make contain errors or omissions. [facility] Disclaimer: The information contained in this section may have been updated after the ester ent was seen, as this information can be updated by other users. 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
[2023-10-04 14:37] VITALS: BP 130/84; PULSE 89; RESP 20; O2SAT 99; BMI 21.9
== END 2023-10-04 23:59 | disposition home or self-care (01) ==
PROVIDERS: PCP Internal Medicine Adolescent Medicine; Visit Provider Nurse Practitioner Family
DX: M50.10 Cervical disc disorder with radiculopathy, unspecified cervical region (principal); M47.22 Other spondylosis with radiculopathy, cervical region; M51.16 Intervertebral disc disorders with radiculopathy, lumbar region; G89.4 Chronic pain syndrome
CPT/HCPCS: 99212; G0463

== ENCOUNTER 2023-11-15 15:05 | Outpatient (POV) | payer OTHER, SELFPAY ==
[2023-11-15 15:09] VITALS: BP 138/82; PULSE 107; RESP 16; O2SAT 96; BMI 21.2
--- NOTE | 2023-11-15 15:22 | EXP.PAIN.SOA ---
[facility] Pain Management SOAP Note Subjective:: Patient is a pleasant 43-year-old female who presents today for medication refill and follow-up. Today she rates her pain a 3 out of 10. Patient states since the addition of the tramadol that it really has made significant improvement in her overall pain symptoms. Patient is currently managed with tramadol 50 mg twice a day, meloxicam 15 mg daily, tizanidine 4 mg 3 times a day and ropinirole 0.5 mg at bedtime. She denies any side effects from this medication. She does state that she was under the weather and had to reschedule last week. Patient states she feels like she still has a little bit of bronchitis but it is getting better. Her Jean has been reviewed and is appropriate. Review of Systems: General: No recent weight changes, no fever, no sleep disturbances Respiratory: No cough, no shortness of air, no recurring pulmonary infections Cardiovascular/peripheral vascular: No chest pain, no palpitations, no edema, no shortness of breath Gastrointestinal: No new onset incontinence, normal bowel movements reported Genitourinary: No new onset incontinence Musculoskeletal: Low back pain, neck pain Psychiatric: [Normal mood/affect] Neurological: [Denies weakness in extremities], [denies balance issues] Objective:: Physical Exam: General: Alert and oriented x3, no acute distress, pleasant and cooperative Lungs: Respirations even and unlabored, symmetrical chest expansion Eyes: PERRL Musculoskeletal: Flexion and extension of cervical [spine] somewhat guarded secondary to pain Neurological: Speech clear, no gross sensory deficit Assessment:: Degenerative disc disease of cervical and lumbar spine with cervical and lumbar radiculopathy symptoms, cervical facet arthropathy, cervical spondylosis, chronic pain syndrome Plan:: Patient is doing well with her current medication regimen. I will send in 1 additional tramadol 50 mg twice a day refill and provide a 1 month supply of this medication. At her last visit she was given a 3-month supply of her other medications and is good up until December. Patient will return to clinic in 1 month for reevaluation of symptoms and plan of care. Patient has been instructed to contact the clinic with any concerns before the next appointment. Dr. Moore has reviewed this note and agrees with this plan of care. This note was dictated using voice recognition software and make contain errors or omissions. [facility] Disclaimer: The information contained in this section may have been updated after the patient was seen, as this information can be updated by other users. 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
== END 2023-11-15 23:59 | disposition home or self-care (01) ==
PROVIDERS: PCP Internal Medicine Adolescent Medicine; Visit Provider Nurse Practitioner Family
DX: M50.10 Cervical disc disorder with radiculopathy, unspecified cervical region (principal); M51.16 Intervertebral disc disorders with radiculopathy, lumbar region; M47.22 Other spondylosis with radiculopathy, cervical region; G89.4 Chronic pain syndrome
CPT/HCPCS: 99212; G0463

== ENCOUNTER 2023-12-20 11:20 | Outpatient (POV) | payer OTHER, SELFPAY ==
--- NOTE | 2023-12-20 11:37 | EXP.PAIN.SOA ---
[facility] Pain Management SOAP Note Subjective:: Patient is a pleasant 43-year-old female who presents today for medication refill and follow-up. Today she rates her pain a 4 out of 10. Patient denies any new trauma or injury. She is currently managed with tramadol 50 mg twice a day, meloxicam 15 mg daily, tizanidine 4 mg 3 times a day and ropinirole 0.5 mg at bedtime. She denies any side effects from this medication. She does state that she really just takes the tramadol once a day and that seems to work well for her. Her Jean has been reviewed and is appropriate. Review of Systems: General: No recent weight changes, no fever, no sleep disturbances Respiratory: No cough, no shortness of air, no recurring pulmonary infections Cardiovascular/peripheral vascular: No chest pain, no palpitations, no edema, no shortness of breath Gastrointestinal: No new onset incontinence, normal bowel movements reported Genitourinary: No new onset incontinence Musculoskeletal: Neck pain Psychiatric: [Normal mood/affect] Neurological: [Denies weakness in extremities], [denies balance issues] Objective:: Physical Exam: General: Alert and oriented x3, no acute distress, pleasant and cooperative Lungs: Respirations even and unlabored, symmetrical chest expansion Eyes: PERRL Musculoskeletal: Flexion and extension of cervical [spine] somewhat guarded secondary to pain, [antalgic gait noted] Neurological: Speech clear, no gross sensory deficit Assessment:: Degenerative disc disease of cervical and lumbar spine with cervical and lumbar radiculopathy symptoms, cervical facet arthropathy, cervical spondylosis, chronic pain syndrome Plan:: I will refill her medications and change her tramadol to 50 mg daily and provide a 3-month supply of this medication along with her meloxicam tizanidine and ropinirole. Patient will return to clinic in 3 months for reevaluation of symptoms and plan of care. Risks and benefits of the medication have been explained in detail to the patient. The patient does understand the risk of dependence on the medication when given over a prolonged period. Patient has been advised of risks of oversedation with the prescribed medication. Narcan has been offered to the paitent in the event of oversedation. Patient has been advised that a family member should also be educated regarding administration of Narcan. The patient has been advised to consult with his/her primary care provider and pharmacist regarding drug-drug interaction of medications currently prescribed. Patient has been prescribed a controlled substance after being counseled on the medication, medication safety, and possible side effects. Opioid contract was reviewed and signed by the patient, and that they have agreed to all of the terms set forth by our compliance program. Patient has been instructed to contact the clinic with any concerns before the next appointment. Dr. Moore has reviewed this note and agrees with this plan of care. This note was dictated using voice recognition software and make contain errors or omissions. [facility] Disclaimer: The information contained in this section may have been updated after the patient was seen, as this information can be updated by other users. 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
[2023-12-20 12:57] VITALS: BP 127/77; PULSE 101; RESP 18; O2SAT 98; BMI 22.1
== END 2023-12-20 23:59 | disposition home or self-care (01) ==
PROVIDERS: PCP Internal Medicine Adolescent Medicine; Visit Provider Nurse Practitioner Family
DX: M50.10 Cervical disc disorder with radiculopathy, unspecified cervical region (principal); M51.16 Intervertebral disc disorders with radiculopathy, lumbar region; M47.22 Other spondylosis with radiculopathy, cervical region; G89.4 Chronic pain syndrome
CPT/HCPCS: 99212; G0463

== ENCOUNTER 2024-03-27 08:22 | Outpatient (POV) | payer OTHER, SELFPAY ==
[2024-03-27 09:01] VITALS: BP 126/77; PULSE 87; RESP 16; O2SAT 100; BMI 22.6
--- NOTE | 2024-03-27 09:19 | A.OFFVIS_ITS ---
[facility] Disclaimer: The information contained in this section may have been updated after the patient was seen, as this information can be updated by other users. 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 Today she rates her pain a 7 out of 10. She denies any new trauma or injury. Patient is currently managed with tramadol 50 mg daily, meloxicam 15 mg daily, tizanidine 4 mg 3 times a day and ropinirole 0.5 mg at bedtime. She denies any side effects from this medication. She does state that she ended up having her insurance saying that the meloxicam needed a prior authorization and that she never ended up getting this prescription however she was unsure if we just did not want her to continue this medication. Her Jean has been reviewed and is appropriate. Review of Systems: General: No recent weight changes, no fever, no sleep disturbances Respiratory: No cough, no shortness of air, no recurring pulmonary infections Cardiovascular/peripheral vascular: No chest pain, no palpitations, no edema, no shortness of breath Gastrointestinal: No new onset incontinence, normal bowel movements reported Genitourinary: No new onset incontinence Musculoskeletal: Low back pain, neck pain Psychiatric: [Normal mood/affect] Neurological: [Denies weakness in extremities], [denies balance issues] Pain at rest (0-10 scale): 7 Objective Objective:: Physical Exam: General: Alert and oriented x3, no acute distress, pleasant and cooperative Lungs: Respirations even and unlabored, symmetrical chest expansion Eyes: PERRL Musculoskeletal: Flexion and extension of cervical [spine] somewhat guarded secondary to pain Neurological: Speech clear, no gross sensory deficit Has patient had previous pain injection?: No Conservative treatment options previously tried: Prescription medications Length of treatment: Longer than 12 weeks Meds Home Medications and Allergies Home Medications ?Medication ?Instructions ?Recorded ?Confirmed ?Type aspirin 81 mg tablet,delayed 81 mg PO DAILY MIGRAINE 09/30/20 03/27/24 History release (Adult Aspirin Regimen) albuterol sulfate 90 mcg/actuation 2 puff inhalation Q6H PRN 06/13/22 03/27/24 Rx aerosol inhaler (Ventolin HFA) shortness of breath or wheezing #6.7 grams prednisone 20 mg tablet 20 mg PO BID #10 tabs 11/15/23 03/27/24 Rx tramadol 50 mg tablet 50 mg PO BID PRN pain #60 tabs 11/15/23 03/27/24 Rx meloxicam 15 mg tablet 15 mg PO DAILY #30 tabs 12/20/23 03/27/24 Rx ropinirole 0.5 mg tablet 0.5 mg PO HS #30 tabs 12/20/23 03/27/24 Rx tramadol 50 mg tablet 50 mg PO DAILY #30 tabs 12/20/23 03/27/24 Rx tizanidine 4 mg tablet See Rx Instructions PO HS 01/03/24 03/27/24 History cervicogenic headaches trazodone 100 mg tablet 100 mg PO HS insomnia 90 days #90 01/03/24 03/27/24 Rx tabs ubrogepant 100 mg tablet (Ubrelvy) 100 mg PO ONCE PRN migraine 01/24/24 03/27/24 Rx headache #8 tabs New Prescriptions to Start Prescriptions: Allergies Allergy/AdvReac Type Severity Reaction Status Date / Time hydrocodone [HYDROCODONE] Allergy Unknown Verified 01/03/24 07:29 oxycodone [OXYCODONE] Allergy Unknown Verified 01/03/24 07:29 Assessment and Plan *Assessment and plan (1) Degenerative disc disease, cervical: Status: Acute Category: Medical Code(s): M50.30 - Other cervical disc degeneration, unspecified cervical region (2) Cervical radiculopathy: Status: Acute Category: Medical Code(s): M54.12 - Radiculopathy, cervical region (3) Cervical spondylosis: Status: Chronic Category: Medical Code(s): M47.812 - Spondylosis without myelopathy or radiculopathy, cervical region (4) Low back pain: Status: Acute Category: Medical Code(s): M54.50 - Low back pain, unspecified Plan I did go over with the patient that we were unaware on the meloxicam about the prior authorization. I will make sure that everything gets sent in today. Patient will be refilled on all of her medication including the tramadol, meloxicam, tizanidine and ropinirole. Patient will return to clinic in 3 months for reevaluation of symptoms and plan of care. Patient has been instructed to contact the clinic with any concerns before the next appointment. Dr. Moore has reviewed this note and agrees with this plan of care. This note was dictated using voice recognition software and make contain errors or omissions. All injections are used with Lidocaine or Bupivacaine and Depo Medrol.
== END 2024-03-27 23:59 | disposition home or self-care (01) ==
PROVIDERS: PCP Internal Medicine Adolescent Medicine; Visit Provider Nurse Practitioner Family
DX: M50.10 Cervical disc disorder with radiculopathy, unspecified cervical region (principal); M47.22 Other spondylosis with radiculopathy, cervical region; M54.50 Low back pain, unspecified; F17.210 Nicotine dependence, cigarettes, uncomplicated
CPT/HCPCS: 99212; G0463

== ENCOUNTER 2024-06-26 08:45 | Outpatient (POV) | payer OTHER, SELFPAY ==
--- NOTE | 2024-06-26 09:13 | EXP.PAIN.SOA ---
[facility] Disclaimer: The information contained in this section may have been updated after the patient was seen, as this information can be updated by other users. 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 Today she rates her pain a 5 out of 10. She denies any new changes from her last appointment. She states overall she is doing well with her current medications. She is currently managed with tramadol 50 mg daily, meloxicam 15 mg daily, tizanidine 4 mg 3 times a day and ropinirole 0.5 mg at bedtime. She denies any side effects. Her Jean has been reviewed and is appropriate. Review of Systems: General: No recent weight changes, no fever, no sleep disturbances Respiratory: No cough, no shortness of air, no recurring pulmonary infections Cardiovascular/peripheral vascular: No chest pain, no palpitations, no edema, no shortness of breath Gastrointestinal: No new onset incontinence, normal bowel movements reported Genitourinary: No new onset incontinence Musculoskeletal: Neck pain, low back pain Psychiatric: [Normal mood/affect] Neurological: [Denies weakness in extremities], [denies balance issues] Pain at rest (0-10 scale): 5 Objective Objective:: Physical Exam: General: Alert and oriented x3, no acute distress, pleasant and cooperative Lungs: Respirations even and unlabored, symmetrical chest expansion Eyes: PERRL Musculoskeletal: Flexion and extension of lumbar [spine] somewhat guarded secondary to pain Neurological: Speech clear, no gross sensory deficit Has patient had previous pain injection?: No Conservative treatment options previously tried: Prescription medications Length of treatment: Longer than 12 weeks Meds Home Medications and Allergies Home Medications ?Medication ?Instructions ?Recorded ?Confirmed ?Type aspirin 81 mg tablet,delayed 81 mg PO DAILY MIGRAINE 09/30/20 03/27/24 History release (Adult Aspirin Regimen) albuterol sulfate 90 mcg/actuation 2 puff inhalation Q6H PRN 06/13/22 03/27/24 Rx aerosol inhaler (Ventolin HFA) shortness of breath or wheezing #6.7 grams prednisone 20 mg tablet 20 mg PO BID #10 tabs 11/15/23 03/27/24 Rx tramadol 50 mg tablet 50 mg PO BID PRN pain #60 tabs 11/15/23 03/27/24 Rx trazodone 100 mg tablet 100 mg PO HS insomnia 90 days #90 01/03/24 03/27/24 Rx tabs ubrogepant 100 mg tablet (Ubrelvy) 100 mg PO ONCE PRN migraine 01/24/24 03/27/24 Rx headache #8 tabs meloxicam 15 mg tablet 15 mg PO DAILY #30 tabs 03/27/24 Rx ropinirole 0.5 mg tablet 0.5 mg PO HS #30 tabs 03/27/24 Rx tizanidine 4 mg tablet 4 mg PO TID cervicogenic headaches 03/27/24 Rx #90 tabs tramadol 50 mg tablet 50 mg PO DAILY #30 tabs 03/27/24 Rx New Prescriptions to Start Prescriptions: Allergies Allergy/AdvReac Type Severity Reaction Status Date / Time hydrocodone (HYDROCODONE) Allergy Unknown Verified 01/03/24 07:29 oxycodone (OXYCODONE) Allergy Unknown Verified 01/03/24 07:29 Assessment and Plan *Assessment and plan (1) Lumbar radiculopathy: Status: Chronic Category: Medical Code(s): M54.16 - Radiculopathy, lumbar region (2) Low back pain: Status: Acute Category: Medical Code(s): M54.50 - Low back pain, unspecified (3) Cervical spondylosis: Status: Chronic Category: Medical Code(s): M47.812 - Spondylosis without myelopathy or radiculopathy, cervical region (4) Cervical radiculopathy: Status: Acute Category: Medical Code(s): M54.12 - Radiculopathy, cervical region (5) Degenerative disc disease, cervical: Status: Acute Category: Medical Code(s): M50.30 - Other cervical disc degeneration, unspecified cervical region Plan I will send in a 90-day supply of her tramadol, meloxicam, tizanidine and ropinirole. Patient will return to clinic in 3 months for reevaluation of symptoms and plan of care. Risks and benefits of the medication have been explained in detail to the patient. The patient does understand the risk of dependence on the medication when given over a prolonged period. Patient has been advised of risks of oversedation with the prescribed medication. Narcan has been offered to the paitent in the event of oversedation. Patient has been advised that a family member should also be educated regarding administration of Narcan. The patient has been advised to consult with his/her primary care provider and pharmacist regarding drug-drug interaction of medications currently prescribed. Patient has been prescribed a controlled substance after being counseled on the medication, medication safety, and possible side effects. Opioid contract was reviewed and signed by the patient, and that they have agreed to all of the terms set forth by our compliance program. Patient has been instructed to contact the clinic with any concerns before the next appointment. Dr. Moore has reviewed this note and agrees with this plan of care. This note was dictated using voice recognition software and make contain errors or omissions.
[2024-06-26 09:54] VITALS: BP 133/75; PULSE 80; RESP 14; O2SAT 100; BMI 21.2
== END 2024-06-26 23:59 | disposition home or self-care (01) ==
PROVIDERS: PCP Internal Medicine Adolescent Medicine; Visit Provider Nurse Practitioner Family
DX: M54.50 Low back pain, unspecified (principal); M47.22 Other spondylosis with radiculopathy, cervical region; M50.10 Cervical disc disorder with radiculopathy, unspecified cervical region; F17.210 Nicotine dependence, cigarettes, uncomplicated
CPT/HCPCS: 99212; G0463

== ENCOUNTER 2024-09-25 08:43 | Outpatient (POV) | payer OTHER, SELFPAY ==
--- NOTE | 2024-09-25 08:48 | EXP.PAIN.SOA ---
[facility] Disclaimer: The information contained in this section may have been updated after the patient was seen, as this information can be updated by other users. 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 Today she rates her pain a 8 out of 10. She denies any new trauma or injury. She does state that the pain has continued to increase on a regular basis. She has both pain in her low back and legs as well as her neck and upper extremities. Patient does state that she would like to proceed forward with the spinal cord stimulator options to try. Patient states that the pain is constant and interferes with her ability perform activities of daily living such as cooking and cleaning. Patient does feel like the low back and leg symptoms are worse than the neck symptoms and thinks that she would like to target this area. Patient is currently managed with Tramadol 50 mg daily, meloxicam 15 mg daily and tizanidine 4 mg 3 times a day along with ropinirole 0.5 mg at bedtime. She denies any side effects. Her Jean has been reviewed and is appropriate. Review of Systems: General: No recent weight changes, no fever, no sleep disturbances Respiratory: No cough, no shortness of air, no recurring pulmonary infections Cardiovascular/peripheral vascular: No chest pain, no palpitations, no edema, no shortness of breath Gastrointestinal: No new onset incontinence, normal bowel movements reported Genitourinary: No new onset incontinence Musculoskeletal: Neck pain, low back pain Psychiatric: [Normal mood/affect] Neurological: [Denies weakness in extremities], [denies balance issues] Pain at rest (0-10 scale): 8 Objective Objective:: Physical Exam: General: Alert and oriented x3, no acute distress, pleasant and cooperative Lungs: Respirations even and unlabored, symmetrical chest expansion Eyes: PERRL Musculoskeletal: Flexion and extension of cervical [spine] somewhat guarded secondary to pain Neurological: Speech clear, no gross sensory deficit Has patient had previous pain injection?: No Conservative treatment options previously tried: Home exercise plan Length of treatment: Longer than 12 weeks Meds Home Medications and Allergies Home Medications ?Medication ?Instructions ?Recorded ?Confirmed ?Type aspirin 81 mg tablet,delayed 81 mg PO DAILY MIGRAINE 09/30/20 06/26/24 History release (Adult Aspirin Regimen) albuterol sulfate 90 mcg/actuation 2 puff inhalation Q6H PRN 06/13/22 06/26/24 Rx aerosol inhaler (Ventolin HFA) shortness of breath or wheezing #6.7 grams prednisone 20 mg tablet 20 mg PO BID #10 tabs 11/15/23 06/26/24 Rx trazodone 100 mg tablet 100 mg PO HS insomnia 90 days #90 01/03/24 06/26/24 Rx tabs ubrogepant 100 mg tablet (Ubrelvy) 100 mg PO ONCE PRN migraine 01/24/24 06/26/24 Rx headache #8 tabs tramadol 50 mg tablet 50 mg PO DAILY #30 tabs 03/27/24 06/26/24 Rx meloxicam 15 mg tablet 15 mg PO DAILY #90 tabs 09/25/24 Rx ropinirole 0.5 mg tablet 0.5 mg PO HS #90 tabs 09/25/24 Rx tizanidine 4 mg tablet 4 mg PO TID cervicogenic headaches 09/25/24 Rx #270 tabs tramadol 50 mg tablet 50 mg PO DAILY #90 tabs 09/25/24 Rx New Prescriptions to Start Prescriptions: meloxicam Hernadez,Silvana A ropinirole Hernadez,Silvana A tizanidine Hernadez,Silvana A tramadol Hernaedz,Silvana A Allergies Allergy/AdvReac Type Severity Reaction Status Date / Time hydrocodone (HYDROCODONE) Allergy Unknown Verified 01/03/24 07:29 oxycodone (OXYCODONE) Allergy Unknown Verified 01/03/24 07:29 Assessment and Plan *Assessment and plan (1) Lumbar radiculopathy: Status: Chronic Category: Medical Code(s): M54.16 - Radiculopathy, lumbar region (2) Low back pain: Status: Acute Category: Medical Code(s): M54.50 - Low back pain, unspecified (3) Cervical spondylosis: Status: Chronic Category: Medical Code(s): M47.812 - Spondylosis without myelopathy or radiculopathy, cervical region (4) Cervical radiculopathy: Status: Acute Category: Medical Code(s): M54.12 - Radiculopathy, cervical region (5) Degenerative disc disease, cervical: Status: Acute Category: Medical Code(s): M50.30 - Other cervical disc degeneration, unspecified cervical region Plan We will make sure that she has a 3-month supply of her medications including the tramadol, meloxicam, tizanidine and ropinirole. I did review over the risk and benefits of the spinal cord stimulator trial and educational handouts were given again today at our visit. Patient would like to proceed forward with this option. I will order the patient a psychological evaluation and if she is deemed an appropriate candidate we will proceed forward with the spinal cord stimulator trial in future. Patient will also be sent for neurosurgeon consults and updated imaging x-ray and MRI without contrast of his cervical and lumbar spine. Patient will return to clinic in 1 month. Risks and benefits of the medication have been explained in detail to the patient. The patient does understand the risk of dependence on the medication when given over a prolonged period. Patient has been advised of risks of oversedation with the prescribed medication. Narcan has been offered to the paitent in the event of oversedation. Patient has been advised that a family member should also be educated regarding administration of Narcan. The patient has been advised to consult with his/her primary care provider and pharmacist regarding drug-drug interaction of medications currently prescribed. Patient has been prescribed a controlled substance after being counseled on the medication, medication safety, and possible side effects. Opioid contract was reviewed and signed by the patient, and that they have agreed to all of the terms set forth by our compliance program. A UDS is needed to verify patient's compliance with our office pain contract. This is ordered based off specific treatments related to chronic pain with the potential to abuse certain medications. Patient has been instructed to contact the clinic with any concerns before the next appointment. Dr. Moore has reviewed this note and agrees with this plan of care. This note was dictated using voice recognition software and make contain errors or omissions.
--- NOTE | 2024-09-25 09:39 | XR_ITS ---
FINAL REPORT CLINICAL HISTORY: lbp, ble pain COMPARISON: 01/04/2023 FINDINGS: 3 views of the lumbar spine were obtained. There is no acute fracture. There is no malalignment. The vertebrae are normal in height. The disc spaces are preserved. IMPRESSION: No acute process. Reviewed, Interpreted and Dictated by Otf Powers MD Transcribed by Prema Edmonsd Authenticated and [facility]
--- NOTE | 2024-09-25 09:39 | XR_ITS ---
FINAL REPORT CLINICAL HISTORY: neck pain, bue pain COMPARISON: 11/17/2021 FINDINGS: 3 views of the cervical spine were obtained. There is no acute fracture. There is no malalignment. The vertebrae are normal in height. There is mild anterior osteophyte formation at C5-6. IMPRESSION: Degenerative changes without acute process. Reviewed, Interpreted and Dictated by Otf Powers MD Transcribed by Prema Edmonds Authenticated and [facility]
[2024-09-25 09:42] VITALS: BP 134/78; PULSE 93; RESP 16; O2SAT 100; BMI 21.2
== END 2024-09-25 23:59 | disposition home or self-care (01) ==
PROVIDERS: PCP Internal Medicine Adolescent Medicine; Visit Provider Nurse Practitioner Family
DX: M47.22 Other spondylosis with radiculopathy, cervical region (principal); M50.10 Cervical disc disorder with radiculopathy, unspecified cervical region; M54.50 Low back pain, unspecified; F17.210 Nicotine dependence, cigarettes, uncomplicated; Z73.89 Other problems related to life management difficulty
CPT/HCPCS: 72040; 72100; 99212; G0463

== ENCOUNTER 2024-10-27 14:33 | Outpatient (POV) | payer BC, SELFPAY ==
[2024-10-27 15:07] VITALS: BP 131/84; PULSE 92; RESP 14; O2SAT 99; BMI 23.0
--- NOTE | 2024-10-27 15:46 | EXP.PAIN.SOA ---
[facility] Disclaimer: The information contained in this section may have been updated after the patient was seen, as this information can be updated by other users. 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 current occupational exposures/hazards: No caffeine: Yes Have you lived/traveled outside [place] in past 30 days?: No Contact w/someone who lives/traveled outside US past 30 days?: No Exposure to someone with infectious disease in past 14 days?: No Do you have a fever (greater than 100.4 F or 38 C)?: No Have you tested positive for COVID-19: No Exposed to someone with COVID-19 in past 14 days?: No Do you have a sore throat?: No Do you have a cough?: No Do you have any weakness?: No Do you have any diarrhea?: No Are you experiencing any unusual bleeding?: No Do you have any muscle aches/pain?: No Do you have any abdominal pain?: No Are you experiencing loss of taste or smell?: No PM Subjective & Objective Subjective Subjective:: Patient is a pleasant 44-year-old female who presents today for follow-up of psychological evaluation. She rates her pain today an 8 out of 10. She denies any new trauma or injury. She states she still has the chronic pain there in her neck as well as her low back that does radiate down into her legs. Patient does state that she still would state the low back and legs are worse than the overall neck pain. She states it is interfering with her ability perform activities of daily living such as cooking and cleaning and that even simple ambulation is affected. Patient states that her gait has been altered and that it does affect her more frequently. Patient does state that she would like to still proceed forward with the spinal cord stimulator trial. Patient is currently managed with tramadol 50 mg daily, meloxicam 15 mg daily tizanidine 4 mg 3 times a day and ropinirole 0.5 mg at bedtime. She denies any side effects from these medications. Her Jean has been reviewed and is appropriate. Patient does not need refills at this time. Review of Systems: General: No recent weight changes, no fever, no sleep disturbances Respiratory: No cough, no shortness of air, no recurring pulmonary infections Cardiovascular/peripheral vascular: No chest pain, no palpitations, no edema, no shortness of breath Gastrointestinal: No new onset incontinence, normal bowel movements reported Genitourinary: No new onset incontinence Musculoskeletal: Low back pain, leg pain Psychiatric: [Normal mood/affect] Neurological: [Denies weakness in extremities], [denies balance issues] Pain at rest (0-10 scale): 8 Objective Objective:: Physical Exam: General: Alert and oriented x3, no acute distress, pleasant and cooperative Lungs: Respirations even and unlabored, symmetrical chest expansion Eyes: PERRL Musculoskeletal: Flexion and extension of lumbar [spine] somewhat guarded secondary to pain, [antalgic gait noted] positive leg raise Neurological: Speech clear, no gross sensory deficit Has patient had previous pain injection?: No Conservative treatment options previously tried: Home exercise plan Length of treatment: Longer than 12 weeks Meds Home Medications and Allergies Home Medications ?Medication ?Instructions ?Recorded ?Confirmed ?Type aspirin 81 mg tablet,delayed 81 mg PO DAILY MIGRAINE 09/30/20 10/27/24 History release (Adult Aspirin Regimen) albuterol sulfate 90 mcg/actuation 2 puff inhalation Q6H PRN 06/13/22 10/27/24 Rx aerosol inhaler (Ventolin HFA) shortness of breath or wheezing #6.7 grams prednisone 20 mg tablet 20 mg PO BID #10 tabs 11/15/23 10/27/24 Rx trazodone 100 mg tablet 100 mg PO HS insomnia 90 days #90 01/03/24 10/27/24 Rx tabs ubrogepant 100 mg tablet (Ubrelvy) 100 mg PO ONCE PRN migraine 01/24/24 10/27/24 Rx headache #8 tabs tramadol 50 mg tablet 50 mg PO DAILY #30 tabs 03/27/24 10/27/24 Rx meloxicam 15 mg tablet 15 mg PO DAILY #90 tabs 09/25/24 10/27/24 Rx ropinirole 0.5 mg tablet 0.5 mg PO HS #90 tabs 09/25/24 10/27/24 Rx tizanidine 4 mg tablet 4 mg PO TID cervicogenic headaches 09/25/24 10/27/24 Rx #270 tabs tramadol 50 mg tablet 50 mg PO DAILY #90 tabs 09/25/24 10/27/24 Rx New Prescriptions to Start Prescriptions: Allergies Allergy/AdvReac Type Severity Reaction Status Date / Time hydrocodone (HYDROCODONE) Allergy Unknown Verified 10/20/24 09:27 oxycodone (OXYCODONE) Allergy Unknown Verified 10/20/24 09:27 Assessment and Plan *Assessment and plan (1) Lumbar radiculopathy: Status: Chronic Category: Medical Code(s): M54.16 - Radiculopathy, lumbar region (2) Low back pain: Status: Acute Category: Medical Code(s): M54.50 - Low back pain, unspecified (3) Cervical spondylosis: Status: Chronic Category: Medical Code(s): M47.812 - Spondylosis without myelopathy or radiculopathy, cervical region (4) Cervical radiculopathy: Status: Acute Category: Medical Code(s): M54.12 - Radiculopathy, cervical region Plan I did discuss with patient regarding the risk and benefits of the spinal cord stimulator trial. Patient was deemed an appropriate candidate through psychological evaluation for the trial. I did also discuss with the patient regarding her follow-up with neurosurgery however we are currently waiting for her MRI to be approved before sending this on. We will continue this process. Patient has tried and failed conservative therapy including oral medication, heat and ice, topicals, at home stretching exercise for longer than 12 weeks as well as physical therapy. Patient has had injection therapy with some providing better improvement than others however often very temporary. Patient will be scheduled for a spinal cord stimulator trial under fluoroscopy. This will be done under local anesthetic. Patient agrees with this plan of care. Patient has been instructed to contact the clinic with any concerns before the next appointment. Dr. Moore has reviewed this note and agrees with this plan of care. This note was dictated using voice recognition software and make contain errors or omissions. All injections are used with Lidocaine, Bupivacaine and Depo Medrol. Occasionally urine drug screen is needed to verify patient's compliance with our office pain contract. This is ordered based off specific treatments related to chronic pain with the potential to abuse certain medications.
== END 2024-10-27 23:59 | disposition home or self-care (01) ==
LOC: SC.PAIN 14:34
PROVIDERS: PCP Internal Medicine Adolescent Medicine; Visit Provider Nurse Practitioner Family
DX: M54.50 Low back pain, unspecified (principal); M47.22 Other spondylosis with radiculopathy, cervical region; F17.290 Nicotine dependence, other tobacco product, uncomplicated; Z73.89 Other problems related to life management difficulty
CPT/HCPCS: 99212; G0463

== ENCOUNTER 2024-11-11 08:00 | Outpatient (RCR) | payer BC, SELFPAY ==
--- NOTE | 2024-10-21 08:47 | HMH.PTOPEV ---
PT Outpatient Evaluation Rehab PT Outpatient Evaluation Start: 10/21/24 07:47 Freq: Status: Active Protocol: Document 10/21/24 08:34 GISELLA (Rec: 10/21/24 08:47 GISELLA [id number]) E-signed By Nas Tolliver, PT Outpatient Therapy Subjective History Subjective History Pt is a 44 yof who is referred to [facility] outpatient PT with complaints of chronic neck pain. She reports that her pain has been ongoing for at least 2 years and she has found no relief. She reports that she has trialed PT before , which did not help. She reports that the pain is centralized into her neck but also goes into her R shoulder and occasionally down her R arm. She denies N&T, reports only pain down into the arms. She reports that she occasionally feels like her R hand is weak. She reports that she is hoping to get a spinal cord stimulator. Occupation: [employer] PMH: Chronic Low Back pain New diagnosis of cancer in past 12 No months? Chief Complaint Pain,Stiff Symptom Type Ache,Sharp Symptoms Relieved By Prescription Meds Symptoms Aggravated By Bending/Stooping,Twisting, Lifting Prior Functional Limitations None Current Functional Limitations Reaching,Lifting,Housework, Desk Work/Reading,Driving Symptom Description Constant and Continuous Level of pain today (0-10) 8 Pain scale - at its best (0-10) 7 Pain scale - at its worst (0-10) 9 Cervical Eval Palpation Cervical Muscles R Cervical Paraspinal,R CT Junction,R Upper Trapezius,R Thoracic Paraspinals Cervical/Thoracic Palpation Findings Tenderness Posture Head/C-Spine Posture Sitting Position Neutral Position Head/C-Spine Posture Standing Position Neutral Position Flexibility Deficits Upper Trapezius Muscle Length (R) Moderate Tightness,(L) Moderate Tightness Scalene Group Muscle Length (R) Moderate Tightness,(L) Moderate Tightness Pectoralis Minor Muscle Length (R) Moderate Tightness,(L) Moderate Tightness Passive Joint Mobility Cervical PIVM Dec: R C3/4 R C4/5 R C5/6 R C6/7 R C7/T1 AROM Cervical Spine Extension Active Range of 20 Motion (degrees) Cervical Spine Flexion Active Range of 50 Motion (degrees) Cervical Spine Right Lateral Flexion 30 Active Range of Motion (degrees) Cervical Spine Left Lateral Flexion 20 Active Range of Motion (degrees) Cervical Spine Right Rotation Active 30 Range of Motion (degrees) Cervical Spine Left Rotation Active 40 Range of Motion (degrees) MMT Right Deltoid (C5) 2+ Poor+ Biceps Brachii Strength Grade 5 Normal Wrist Extension Strength Grade 5 Normal Triceps Brachii Strength Grade 5 Normal Wrist Flexion Strength Grade 5 Normal Extensor Pollicis Longus Strength Grade 5 Normal Finger Abduction Strength Grade 4 Good DTR Rt Biceps 2+ Lt Biceps 2+ Rt Brachioradialis 2+ Lt Brachioradialis 2+ Rt Triceps 2+ Lt Triceps 2+ Altered Sensation Bilateral Upper extremity Dermatomes C5,C6,C7,C8,T1 Comment INTACT Special Test C-Spine Foraminal Compression (Spurling) Negative Left,Negative Right Test C-spine Verterbral Accessory Movements Central P/A Roxana,Right P/A that Elicit Symptoms Roxana C-Spine Foraminal Distraction Test Positive C-Spine Compression Test Negative Left,Negative Right C-Spine Swallowing Test Negative Right Shoulder Abduction Relief Test Negative Right Shoulder Brachial Plexus Stretch Test Negative Right Neck Disability Index Neck Disability Index Section 1: Pain Intensity The pain is very severe at the moment Section 2: Personal Care (washing, I can look after myself dressing, etc.) normally without causing extra pain Section 3: Lifting I can only lift very light weights Section 4: Reading I can't read as much as I want because of moderate pain in my neck Section 5: Headaches I have moderate headaches, which come infrequently Section 6: Concentration I can concentrate fully when I want to with no difficulty Section 7: Work I can hardly do any work at all Section 8: Driving I can't drive my car as long as I want because of moderate pain in my Section 9: Sleeping My sleep is completely disturbed (5-7 hrs sleepless) Section 10: Recreation I am able to engage in a few of my usual recreation activities because NDI Score 28 Miscellaneous Dx PT Eval Objective Objective B Rhomboid Strength: 2/ Outpatient Therapy Assessment Impairments Problems/Impairmments Palpation Tenderness,Impaired Range of Motion,Impaired Strength,Impaired Lifting, Impaired Household Care, Impaired Work Activities, Impaired Desk/Computer Activities,Subjective C/O Pain Prognosis Rehab Potential Good Comment w HEP compliance Clinical Impression Consistent with Diagnosis Yes Consistent with Neck pain with mob. 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 Number of Weeks 8 Decreased Palpation Tenderness Yes: 0-1/4 to TTP Assessment Above Increase Range of Motion Yes: 75-100% pain-free CROM WNL Increase Strength Yes: 4/5 to R shoulder/ rhomboid Restore Ability to Lift Objects to Waist Yes: 10# without increasing Level neck pain Restore Ability to Lift Objects to Yes: 3# without increasing Shoulder Level neck pain Improve Ability For Household Care Yes: Normal household cleaning duties without increasing symptoms Improve Tolerance to Work Activities Yes: Normal daily work duties without increasing symptoms Improve Neck Disability Index Score Yes: <19 Decrease Subjective C/O Pain Yes: 2-09/22 with above assessment Patient to be Ind w/ Advanced HEP Yes Outpatient Therapy Plan of Care Treatment Plan May Include Therapeutic Exercise Including Home Yes Exercise Program Manual Therapy Techniques Yes Neuromuscular Re-education Yes Therapeutic Activities to Return to Yes Previous Functional/Work Level ADL/Self Care Education Yes Mechanical Traction Yes Dry Needling Yes Thermal Modalities Yes Electrical Stimulation Yes Ultrasound/Phonophoresis Yes Manual Lymphatic Drainage Yes Eval/Re-Eval Yes Frequency Times per week 2 Duration Number of Weeks 8 Addendums This patient is a candidate for social No or vocational rehab? Patient/Guardian verbally acknowledges Yes understanding of treatment program and consents to further treatment? Patient/Guardian verbally acknowledges Yes understanding of diagnosis, prognosis and goals for treatment? Eval Complexity PT Charges 53906 - Moderate Complexity Shoulder/Elbow Eval Shoulder Objective Measurements Elbow Objective Measurements PHYSICIAN CERTIFICATION: I certify the specified therapy services for Lisa Smith are required, authorized, and reviewed every 30 days.
== END 2024-11-11 23:59 | disposition home or self-care (01) ==
LOC: PT 08:00
PROVIDERS: PCP Internal Medicine Adolescent Medicine; Visit Provider Nurse Practitioner Family
DX: M47.22 Other spondylosis with radiculopathy, cervical region (principal); M50.30 Other cervical disc degeneration, unspecified cervical region
CPT/HCPCS: 97014; 97035; 97110; 97140; 97163; G0283

== ENCOUNTER 2024-11-17 09:58 | Outpatient (POV) | payer BC, SELFPAY ==
[2024-11-17 10:40] VITALS: BP 131/86; PULSE 97; RESP 14; O2SAT 97; BMI 22.1
--- NOTE | 2024-11-17 11:02 | A.OFFVIS_ITS ---
[facility] Disclaimer: The information contained in this section may have been updated after the patient was seen, as this information can be updated by other users. 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: No Are you experiencing loss of taste or smell?: No PM Subjective & Objective Subjective Subjective:: Patient is a pleasant 44-year-old female who presents today for follow-up of psychological evaluation as well as MRI denial. Today she rates her pain a 7 out of 10. Patient denies any new injuries or falls. She does state that she still has the chronic neck pain that does radiate into her upper extremities as well as low back pain that does radiate primarily down the right leg with numbness and tingling. Patient does typically have most of her radiating numbness and tingling along the right side of both upper and lower extremities. Patient has had injections in the past that have helped however have often been very temporary. 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 Patient has continued physical therapy however states this is making her symptoms worse and that she is having to recover a couple days following this therapy due to the worsening pain symptoms. Patient does state that she is interested in still proceeding forward with the spinal cord stimulator. Patient has tried oral medications, heat and ice, topicals, at home stretching exercise for longer than 12 weeks as well as ongoing physical therapy with no additional change. Patient is currently managed with tramadol 50 mg daily, meloxicam 15 mg daily, tizanidine 4 mg 3 times a day and ropinirole 0.5 mg at bedtime. She denies any side effects. Patient is unsure if she needs refills at this time. Her Jean has been reviewed and is appropriate. 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 Psychiatric: [Normal mood/affect] Neurological: [Denies weakness in extremities], [denies balance issues] Pain at rest (0-10 scale): 7 Objective Objective:: Physical Exam: General: Alert and oriented x3, no acute distress, pleasant and cooperative Lungs: Respirations even and unlabored, symmetrical chest expansion Eyes: PERRL Musculoskeletal: Flexion and extension of lumbar [spine] somewhat guarded secondary to pain, [antalgic gait noted] positive right leg raise Neurological: Speech clear, no gross sensory deficit Has patient had previous pain injection?: No Conservative treatment options previously tried: Home exercise plan Length of treatment: Longer than 12 weeks, Physical Therapy Length of treatment: Ongoing and Prescription medications Length of treatment: Longer than 12 weeks Meds Home Medications and Allergies Home Medications ?Medication ?Instructions ?Recorded ?Confirmed ?Type aspirin 81 mg tablet,delayed 81 mg PO DAILY MIGRAINE 09/30/20 11/17/24 History release (Adult Aspirin Regimen) albuterol sulfate 90 mcg/actuation 2 puff inhalation Q6H PRN 06/13/22 11/17/24 Rx aerosol inhaler (Ventolin HFA) shortness of breath or wheezing #6.7 grams prednisone 20 mg tablet 20 mg PO BID #10 tabs 11/15/23 11/17/24 Rx trazodone 100 mg tablet 100 mg PO HS insomnia 90 days #90 01/03/24 11/17/24 Rx tabs ubrogepant 100 mg tablet (Ubrelvy) 100 mg PO ONCE PRN migraine 01/24/24 11/17/24 Rx headache #8 tabs tramadol 50 mg tablet 50 mg PO DAILY #30 tabs 03/27/24 11/17/24 Rx meloxicam 15 mg tablet 15 mg PO DAILY #90 tabs 09/25/24 11/17/24 Rx ropinirole 0.5 mg tablet 0.5 mg PO HS #90 tabs 09/25/24 11/17/24 Rx tizanidine 4 mg tablet 4 mg PO TID cervicogenic headaches 09/25/24 11/17/24 Rx #270 tabs tramadol 50 mg tablet 50 mg PO DAILY #90 tabs 09/25/24 11/17/24 Rx New Prescriptions to Start Prescriptions: Allergies Allergy/AdvReac Type Severity Reaction Status Date / Time hydrocodone (HYDROCODONE) Allergy Unknown Verified 10/20/24 09:27 oxycodone (OXYCODONE) Allergy Unknown Verified 10/20/24 09:27 Assessment and Plan *Assessment and plan (1) Lumbar radiculopathy: Status: Chronic Category: Medical Code(s): M54.16 - Radiculopathy, lumbar region (2) Low back pain: Status: Acute Category: Medical Code(s): M54.50 - Low back pain, unspecified (3) Cervical spondylosis: Status: Chronic Category: Medical Code(s): M47.812 - Spondylosis without myelopathy or radiculopathy, cervical region (4) Cervical radiculopathy: Status: Acute Category: Medical Code(s): M54.12 - Radiculopathy, cervical region (5) Degenerative disc disease, cervical: Status: Acute Category: Medical Code(s): M50.30 - Other cervical disc degeneration, unspecified cervical region (6) Chronic pain syndrome: Status: Acute Category: Medical Code(s): G89.4 - Chronic pain syndrome Plan Patient was reviewed over her psychological evaluation and she was deemed an appropriate candidate for the spinal cord stimulator trial. Risk and benefits were discussed with the patient and she would like to proceed forward with this plan of care. Patient has tried and failed conservative therapy including oral medications, heat and ice, topicals, physical therapy that is still ongoing as well as continued at home stretching exercise for longer than 12 weeks. Patient has also tried and failed conservative therapy such as injections with minimal changes. Patient was denied advanced imaging of her cervical and lumbar spine stating that it was not mentioned in our notes regarding muscle weakness in the arms/legs or loss of feeling due to possible nerve root damage. Patient was reviewed over that in multiple notes we have discussed the numbness and tingling with altered sensation and loss of feeling requiring us to try injections such as cervical epidurals, lumbar epidurals. Patient continues to have an antalgic gait related to her right leg symptoms that do alter her ability to walk frequently feeling like her leg is going to give out and cause her to fall. Patient does continue to have a positive right leg raise with decreased sensation. We will resubmit for the MRI with out contrast of her cervical and lumbar spine as we are trying to evaluate her for possible surgical intervention by neurosurgery. Patient cannot be sent to neurosurgery without having any advanced imaging. Patient does have consistent findings in both her cervical and lumbar spine that make it appropriate to have the advanced imaging for evaluation. Patient has had the chronic neck and low back symptoms for longer than a year and it has continued to progressively worsen. We will contact the patient once we have approval for the advanced imaging. We will also proceed forward with submitting to insurance for the spinal cord stimulator trial under fluoroscopy. Patient will be checked on her medication refills. Patient agrees with this plan of care. Patient has been instructed to contact the clinic with any concerns before the next appointment. Dr. Moore has reviewed this note and agrees with this plan of care. This note was dictated using voice recognition software and make contain errors or omissions. All injections are used with Lidocaine, Bupivacaine and dexamethasone. Occasionally urine drug screen is needed to verify patient's compliance with our office pain contract. This is ordered based off specific treatments related to chronic pain with the potential to abuse certain medications.
== END 2024-11-17 23:59 | disposition home or self-care (01) ==
PROVIDERS: PCP Internal Medicine Adolescent Medicine; Visit Provider Nurse Practitioner Family
DX: G89.4 Chronic pain syndrome (principal); M54.50 Low back pain, unspecified; M47.22 Other spondylosis with radiculopathy, cervical region; M50.10 Cervical disc disorder with radiculopathy, unspecified cervical region; F17.290 Nicotine dependence, other tobacco product, uncomplicated
CPT/HCPCS: 99212; G0463

== ENCOUNTER 2024-12-05 13:44 | Outpatient (CLI) | payer OTHER, SELFPAY ==
--- NOTE | 2024-12-05 13:46 | MR_ITS ---
FINAL REPORT TECHNIQUE: Multiplanar MR without contrast CLINICAL HISTORY: NECK PAIN LIMITED ROM BILATERAL PAIN, TINGLING , NUMBNESS AND BURNING RIGHT SIDE IS WORSE COMPARISON: 11/17/2021 FINDINGS: Limited images of the posterior fossa are unremarkable. Alignment is normal. Cervical spinal cord shows normal signal and contour. C2-3: Unremarkable C3-4: Unremarkable C4-5: Mild annular disc bulge, similar to prior exam. There is no canal stenosis. C5-6: Mild annular disc bulge, similar to prior exam. Mild bilateral neuroforaminal narrowing. C6-7: Unremarkable C7-T1: Unremarkable IMPRESSION: Mild degenerative disc disease with neuroforaminal narrowing as above. No significant change from prior. Reviewed, Interpreted and Dictated by Shauna Rosen MD Transcribed by Gillian Hubbard Authenticated and [facility]
--- NOTE | 2024-12-05 13:47 | MR_ITS ---
FINAL REPORT TECHNIQUE: Multiplanar MR without contrast CLINICAL HISTORY: NECK PAIN/LBP LIMITED ROM BILATERAL PAIN, TINGLING , NUMBNESS AND BURNING RIGHT SIDE IS WORSE COMPARISON: 01/12/2023 FINDINGS: Sagittal images show normal vertebral height. Alignment is normal. Marrow signal pattern is unremarkable. T12-L1: Unremarkable. L1-2: Unremarkable L2-3: Unremarkable L3-4: Unremarkable L4-5: Minimal annular disc bulge. L5-S1: Minimal annular disc bulge. IMPRESSION: Stable minimal degenerative changes Reviewed, Interpreted and Dictated by Shauna Rosen MD Transcribed by Gillian Hubbard Authenticated and [facility]
== END 2024-12-05 23:59 | disposition home or self-care (01) ==
LOC: RAD 13:44
PROVIDERS: PCP Internal Medicine Adolescent Medicine; Visit Provider Nurse Practitioner Family
DX: M47.816 Spondylosis without myelopathy or radiculopathy, lumbar region (principal); M50.321 Other cervical disc degeneration at C4-C5 level; M50.322 Other cervical disc degeneration at C5-C6 level; M99.71 Connective tissue and disc stenosis of intervertebral foramina of cervical region
CPT/HCPCS: 72141; 72148

== ENCOUNTER 2024-12-12 08:00 | Outpatient (RCR) | payer BC, SELFPAY | END 2024-12-12 23:59 | disposition home or self-care (01) | LOC: PT 08:00 | PROVIDERS: PCP Internal Medicine Adolescent Medicine; Visit Provider Nurse Practitioner Family | DX: M47.22 Other spondylosis with radiculopathy, cervical region (principal) | CPT/HCPCS: 97014; 97035; 97110; 97140; 97164; G0283 ==

== ENCOUNTER 2025-01-02 14:01 | Outpatient (POV) | payer BC, SELFPAY ==
[2025-01-02 14:03] VITALS: BP 129/80; PULSE 91; RESP 18; O2SAT 98; BMI 21.2
--- NOTE | 2025-01-02 15:32 | EXP.PAIN.SOA ---
[facility] Disclaimer: The information contained in this section may have been updated after the patient was seen, as this information can be updated by other users. 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: No Are you experiencing loss of taste or smell?: No PM Subjective & Objective Subjective Subjective:: Patient is a pleasant 44-year-old female who presents today for insurance denial of her spinal cord stimulator trial. Today she rates her pain a 7 out of 10. She denies any new trauma or injury. Patient states she still continues to have the chronic neck and low back pain that does radiate into her upper and lower extremities. Patient does state that the lower extremity pain is what bothers her the most and she constantly feels like she has pressure and pounding sensations like somebody is hammering nails into her toes. Patient states the pain is interfering with her ability perform activities of daily living such as cooking and cleaning. Patient states she was really hopeful to get the stimulator trial as she does not want to rely on medications. Patient is currently managed with tramadol 50 mg daily, meloxicam 15 mg daily, tizanidine 4 mg 3 times a day and ropinirole 0.5 mg at bedtime. Patient denies any side effects. Patient is unsure if she needs refills. Her Jean has been reviewed and is appropriate. Review of Systems: General: No recent weight changes, no fever, no sleep disturbances Respiratory: No cough, no shortness of air, no recurring pulmonary infections Cardiovascular/peripheral vascular: No chest pain, no palpitations, no edema, no shortness of breath Gastrointestinal: No new onset incontinence, normal bowel movements reported Genitourinary: No new onset incontinence Musculoskeletal: Low back pain, lumbar radiculopathy symptoms Psychiatric: [Normal mood/affect] Neurological: [Denies weakness in extremities], [denies balance issues] Pain at rest (0-10 scale): 7 Objective Objective:: Physical Exam: General: Alert and oriented x3, no acute distress, pleasant and cooperative Lungs: Respirations even and unlabored, symmetrical chest expansion Eyes: PERRL Musculoskeletal: Flexion and extension of lumbar [spine] somewhat guarded secondary to pain, [antalgic gait noted] Neurological: Speech clear, no gross sensory deficit Has patient had previous pain injection?: No Conservative treatment options previously tried: Home exercise plan Length of treatment: Longer than 12 weeks Meds Home Medications and Allergies Home Medications ?Medication ?Instructions ?Recorded ?Confirmed ?Type aspirin 81 mg tablet,delayed 81 mg PO DAILY MIGRAINE 09/30/20 01/02/25 History release (Adult Aspirin Regimen) albuterol sulfate 90 mcg/actuation 2 puff inhalation Q6H PRN 06/13/22 01/02/25 Rx aerosol inhaler (Ventolin HFA) shortness of breath or wheezing #6.7 grams prednisone 20 mg tablet 20 mg PO BID #10 tabs 11/15/23 01/02/25 Rx trazodone 100 mg tablet 100 mg PO HS insomnia 90 days #90 01/03/24 01/02/25 Rx tabs ubrogepant 100 mg tablet (Ubrelvy) 100 mg PO ONCE PRN migraine 01/24/24 01/02/25 Rx headache #8 tabs tramadol 50 mg tablet 50 mg PO DAILY #90 tabs 09/25/24 01/02/25 Rx meloxicam 15 mg tablet 15 mg PO DAILY #90 tabs 11/17/24 01/02/25 Rx ropinirole 0.5 mg tablet 0.5 mg PO HS #90 tabs 11/17/24 01/02/25 Rx tizanidine 4 mg tablet 4 mg PO TID cervicogenic headaches 11/17/24 01/02/25 Rx #270 tabs tramadol 50 mg tablet 50 mg PO DAILY #30 tabs 11/17/24 01/02/25 Rx New Prescriptions to Start Prescriptions: Allergies Allergy/AdvReac Type Severity Reaction Status Date / Time hydrocodone (HYDROCODONE) Allergy Unknown Verified 10/20/24 09:27 oxycodone (OXYCODONE) Allergy Unknown Verified 10/20/24 09:27 Assessment and Plan *Assessment and plan (1) Lumbar radiculopathy: Status: Chronic Category: Medical Code(s): M54.16 - Radiculopathy, lumbar region (2) Low back pain: Status: Acute Category: Medical Code(s): M54.50 - Low back pain, unspecified Plan I did go over with the patient regarding the spinal cord stimulator denial and we did discuss the possibility of a pump trial. Patient does still have more radicular symptoms overall. Patient will be sent to referral for Dr. Barbosa for an EMG test of her bilateral legs and feet for the constant stabbing burning sensations. We will follow-up with her following this for the results. I will review over make sure that she does have refills of her medications. I did review over with her on her updated MRI of her low back and neck. Patient will return to clinic in 1 month for reevaluation of symptoms and plan of care. Patient has been instructed to contact the clinic with any concerns before the next appointment. Dr. Moore has reviewed this note and agrees with this plan of care. This note was dictated using voice recognition software and make contain errors or omissions. All injections are used with Lidocaine, Bupivacaine and dexamethasone. Occasionally urine drug screen is needed to verify patient's compliance with our office pain contract. This is ordered based off specific treatments related to chronic pain with the potential to abuse certain medications.
== END 2025-01-02 23:59 | disposition home or self-care (01) ==
PROVIDERS: PCP Internal Medicine Adolescent Medicine; Visit Provider Nurse Practitioner Family
DX: M54.16 Radiculopathy, lumbar region (principal); Z79.899 Other long term (current) drug therapy
CPT/HCPCS: 99212; G0463

== ENCOUNTER 2025-02-16 10:35 | Outpatient (POV) | payer BC, SELFPAY ==
--- NOTE | 2025-02-16 11:03 | EXP.PAIN.SOA ---
[facility] Disclaimer: The information contained in this section may have been updated after the patient was seen, as this information can be updated by other users. 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: No Are you experiencing loss of taste or smell?: No PM Subjective & Objective Subjective Subjective:: Patient is a pleasant 44-year-old female who presents today for 3-month follow-up and medication refill. She rates her pain today as 6 out of 10. She denies anything new from her last appointment. She is still having the chronic neck and low back pain. Patient does state that she is hoping to change her insurance as soon as she possibly can to try again for the day spinal cord stimulator trial. Patient is currently managed with tramadol 50 mg daily, meloxicam 15 mg daily, tizanidine 4 mg 3 times a day and ropinirole 0.5 mg at bedtime. She denies any side effects or changes to her pharmacy. Her Jean has been reviewed and is appropriate. Review of Systems: General: No recent weight changes, no fever, no sleep disturbances Respiratory: No cough, no shortness of air, no recurring pulmonary infections Cardiovascular/peripheral vascular: No chest pain, no palpitations, no edema, no shortness of breath Gastrointestinal: No new onset incontinence, normal bowel movements reported Genitourinary: No new onset incontinence Musculoskeletal: Low back pain, neck pain Psychiatric: [Normal mood/affect] Neurological: [Denies weakness in extremities], [denies balance issues] Pain at rest (0-10 scale): 6 Objective Objective:: Physical Exam: General: Alert and oriented x3, no acute distress, pleasant and cooperative Lungs: Respirations even and unlabored, symmetrical chest expansion Eyes: PERRL Musculoskeletal: Flexion and extension of lumbar [spine] somewhat guarded secondary to pain, [antalgic gait noted] Neurological: Speech clear, no gross sensory deficit Has patient had previous pain injection?: No Conservative treatment options previously tried: Home exercise plan Length of treatment: Longer than 12 weeks Meds Home Medications and Allergies Home Medications ?Medication ?Instructions ?Recorded ?Confirmed ?Type aspirin 81 mg tablet,delayed 81 mg PO DAILY MIGRAINE 09/30/20 01/02/25 History release (Adult Aspirin Regimen) albuterol sulfate 90 mcg/actuation 2 puff inhalation Q6H PRN 06/13/22 01/02/25 Rx aerosol inhaler (Ventolin HFA) shortness of breath or wheezing #6.7 grams prednisone 20 mg tablet 20 mg PO BID #10 tabs 11/15/23 01/02/25 Rx trazodone 100 mg tablet 100 mg PO HS insomnia 90 days #90 01/03/24 01/02/25 Rx tabs ubrogepant 100 mg tablet (Ubrelvy) 100 mg PO ONCE PRN migraine 01/24/24 01/02/25 Rx headache #8 tabs tramadol 50 mg tablet 50 mg PO DAILY #90 tabs 09/25/24 01/02/25 Rx meloxicam 15 mg tablet 15 mg PO DAILY #90 tabs 11/17/24 01/02/25 Rx ropinirole 0.5 mg tablet 0.5 mg PO HS #90 tabs 11/17/24 01/02/25 Rx tizanidine 4 mg tablet 4 mg PO TID cervicogenic headaches 11/17/24 01/02/25 Rx #270 tabs tramadol 50 mg tablet 50 mg PO DAILY #30 tabs 11/17/24 01/02/25 Rx New Prescriptions to Start Prescriptions: Allergies Allergy/AdvReac Type Severity Reaction Status Date / Time hydrocodone (HYDROCODONE) Allergy Unknown Verified 10/20/24 09:27 oxycodone (OXYCODONE) Allergy Unknown Verified 10/20/24 09:27 Assessment and Plan *Assessment and plan (1) Chronic pain syndrome: Status: Acute Category: Medical Code(s): G89.4 - Chronic pain syndrome (2) Lumbar radiculopathy: Status: Chronic Category: Medical Code(s): M54.16 - Radiculopathy, lumbar region (3) Low back pain: Status: Acute Category: Medical Code(s): M54.50 - Low back pain, unspecified (4) Cervical spondylosis: Status: Chronic Category: Medical Code(s): M47.812 - Spondylosis without myelopathy or radiculopathy, cervical region (5) Cervical radiculopathy: Status: Acute Category: Medical Code(s): M54.12 - Radiculopathy, cervical region (6) Degenerative disc disease, cervical: Status: Acute Category: Medical Code(s): M50.30 - Other cervical disc degeneration, unspecified cervical region Plan I will refill the patient's tramadol, meloxicam, tizanidine and ropinirole and provide a 90-day supply of this medication. Patient will return to clinic in 3 months. Patient did have elevated blood pressure today and we did discuss the possibility of making sure to check it at home. Risks and benefits of the medication have been explained in detail to the patient. The patient does understand the risk of dependence on the medication when given over a prolonged period. Patient has been advised of risks of oversedation with the prescribed medication. Narcan has been offered to the paitent in the event of oversedation. Patient has been advised that a family member should also be educated regarding administration of Narcan. The patient has been advised to consult with his/her primary care provider and pharmacist regarding drug-drug interaction of medications currently prescribed. Patient has been prescribed a controlled substance after being counseled on the medication, medication safety, and possible side effects. Opioid contract was reviewed and signed by the patient, and that they have agreed to all of the terms set forth by our compliance program. A UDS is needed to verify patient's compliance with our office pain contract. This is ordered based off specific treatments related to chronic pain with the potential to abuse certain medications. Patient has been instructed to contact the clinic with any concerns before the next appointment. Dr. Moore has reviewed this note and agrees with this plan of care. This note was dictated using voice recognition software and make contain errors or omissions.
[2025-02-16 11:04] VITALS: BP 147/88; BP 152/88; PULSE 85; RESP 14; O2SAT 100; BMI 17.6
== END 2025-02-16 23:59 | disposition home or self-care (01) ==
PROVIDERS: PCP Internal Medicine Adolescent Medicine; Visit Provider Nurse Practitioner Family
DX: G89.4 Chronic pain syndrome (principal); M47.22 Other spondylosis with radiculopathy, cervical region; M50.120 Mid-cervical disc disorder, unspecified level; Z79.891 Long term (current) use of opiate analgesic; Z79.899 Other long term (current) drug therapy
CPT/HCPCS: 99212; G0463